=== PATIENT | female | born 1955 | race Caucasian/White ===

== ENCOUNTER 2017-12-23 00:41 | Emergency (ER) | payer OTHER, SELFPAY ==
[2017-12-23 00:50] VITALS: BP 150/76; PULSE 64; RESP 18; TEMP 36.8; O2SAT 100; BMI 21.4
--- NOTE | 2017-12-23 00:58 | PC.NURSE ---
She was scratched by cat at [employer] where she works,seen yesterday at clinic and placed on augmentin.Report filled out there and mailed to appropriate department.Here because of incresing pain in her right wrist and arm.
--- NOTE | 2017-12-23 01:04 | DI.RAD.S_ITS ---
PROCEDURE: XR WRIST RT 2V INDICATIONS: cat scratch TECHNIQUE: 2 views of the wrist were acquired. COMPARISON: None. FINDINGS: Bones: No fractures or dislocations. No suspicious bony lesions. Soft tissues: No suspicious soft tissue calcifications. IMPRESSION: No focal osseous destruction to suggest advanced osteomyelitis although if there is persistent high clinical concern, contrast enhanced MRI could be performed to exclude early infection No radiopaque foreign body. Dictated by: Brando Santo M.D. on 12/23/2017 at 7:28 Approved by: Brando Santo M.D. on 12/23/2017 at 7:30
[2017-12-23] MEDS: CODEINE/APAP 30/300 PREPACK 1 BOTTLE MISC (01:39)
--- NOTE | 2018-01-03 10:52 | ED_ITS ---
HPI - Animal Bite General Chief Complaint: Animal Bite Stated Complaint: CAT SCRATCH Time Seen by Provider: 12/23/17 01:00 Source: patient and family Mode of arrival: ambulatory Limitations: no limitations History of Present Illness HPI narrative: 62-year-old female presents with her and a chief complaint of a cat scratch on her right wrist yesterday. She was seen and evaluated at an outside facility and put on Augmentin, of which she has taken 2 doses. She denies systemic symptoms such as fever nor chills, nausea or vomiting. She had redness on the volar aspect of her forearm that extended nearly to the elbow and a puncture wound on the volar part of her wrist as well as significant pain in her hand upon presentation to Urgent Care. She took the 2 doses of Augmentin as mentioned and has improvement of the erythema on the forearm and no change in her right hand Related Data Previous Rx's Medication Instructions Recorded acetaminophen-codeine 1 tab PO Q4-6H PRN #14 tab 12/23/17 [Tylenol-Codeine #3] Allergies Allergy/AdvReac Type Severity Reaction Status Date / Time No Known Drug Allergies Allergy Verified 12/23/17 01:01 Review of Systems Review of Systems All systems reviewed & are unremarkable except as noted in HPI and below Constitutional Denies chills, Denies fever(s), Denies lethargy and Denies weakness Eyes Denies change in vision, Denies eye discharge, Denies irritation and Denies loss of vision ENT Ears, Nose, Mouth, and Throat: Denies change in voice, Denies neck pain and Denies sore throat Cardiovascular Denies chest pain, Denies irregular heart rhythm, Denies lightheadedness, Denies palpitations, Denies dyspnea, Denies dyspnea on exertion and Denies orthopnea Respiratory Denies cough, Denies dyspnea, Denies dyspnea on exertion and Denies wheezing Gastrointestinal Gastrointestinal: Denies abdominal pain, Denies change in bowel habits, Denies diarrhea, Denies nausea and Denies vomiting Genitourinary Denies hematuria, Denies flank pain, Denies urinary incontinence and Denies urinary urgency Musculoskeletal Denies neck pain Integumentary/Breasts Denies pruritus, Reports erythema, Denies rash and Reports wounds Neurologic Denies confusion, Denies loss of vision and Denies weakness Psychiatric Denies anxiety, Denies confusion, Denies depression, Denies homicidal ideation and Denies suicidal ideation Endocrine Denies palpitations Hematologic/Lymphatic Denies easy bruising Allergic/Immunologic Denies wheezing [facility] Social History Smoking Status: Never smoker Exam Narrative Exam Narrative: Pleasant 62F in mild distress Initial Vital Signs Initial Vital Signs: Vital Signs Temperature 98.3 F 12/23/17 00:50 Pulse Rate 64 12/23/17 00:50 Respiratory Rate 18 12/23/17 00:50 Blood Pressure 150/76 H 12/23/17 00:50 Pulse Oximetry 100 12/23/17 00:50 Const General: cooperative, well developed and in distress Nutritional Appearance: well nourished Orientation: alert, awake, oriented x3 and not confused HENMT Head: normocephalic and atraumatic Ears: external ears normal and TM's normal bilaterally Nose: external nose normal and No nasal discharge Face and sinus: sinuses nontender, face symmetric, no sinus tenderness and No dry mucous membranes Mouth: oral mucosae normal and moist mucous membranes Teeth and gingiva: dentition normal Throat: tonsils normal and uvula midline Eyes General: appearance normal, both eyes and all related structures Eyelids: eyelids normal Conjunctivae: conjunctivae normal Sclera: sclerae normal Pupils: PERRL EOM: EOM intact bilaterally Resp Effort & Inspection: normal respiratory effort, able to speak in complete sentences, no respiratory distress and no use of accessory muscles Auscultation: clear to auscultation bilaterally, no rales, no rhonchi and no wheezes GI Inspection: non-distended Palpation: soft, no hepatosplenomegaly, No guarding, No pulsatile mass and No tender Auscultation: normal bowel sounds Back/Spine/Pelvis Back: No CVA tenderness Cervical Spine: cervical ROM normal and No pain with cervical ROM Thoracic/Lumbar Spine: thoracic and lumbar spine normal to inspection Skin General: erythema Neuro General: alert, oriented x3, gait normal and no focal motor deficits Speech: speech normal Extrem Right upper extremity: wrist (Small puncture wound volar aspect of right wrist with surrounding erythema midway up the forearm. No induration or fluctuance noted) and hand (Normal sensation and cap refill with very minimal swelling to fingers. No pain with palpation to palm or dorsal surface of hand. No pain with passive flexion of any of the fingers. Very minimal swelling, as mentioned. None of kidney volts signs of flexor tenosynovitis are present) Course Orders Ordered: ED Orders 12/23/17 01:04 XR wrist RT 2V Stat Discontinued Medications Acetaminophen/Codeine Phosphate (Tylenol #3 Prepack) 1 bottle MISC SEEINSTR ONE Stop: 12/23/17 01:33 Last Admin: 12/23/17 01:39 Dose: 1 bottle Vital Signs - 8 hr 12/23/17 00:50 Temperature 98.3 F Pulse Rate 64 Respiratory Rate 18 Blood Pressure 150/76 H Pulse Oximetry 100 MDM - Animal Bite Differential Diagnosis Differential diagnosis: Likely bite by animal, cat bite and dog bite Medical Records Attestation: I reviewed the patient's medical records. Lab Data Attestation: I reviewed the patient's lab results. MDM Narrative Medical decision making narrative: Lengthy discussion with patient and at the bedside. She has had 2 doses of antibiotics and states that she is improving just not quickly, certainly not worsening. The redness on her forearm as improved. She denies systemic findings. I asked her to return later in the day to re-evaluate and gave significant instructions regarding signs/ symptoms which would prompt a return. Discharge Plan Departure Patient Disposition: Home Clinical Impression: Cat scratch, Cellulitis of forearm Discharge Date/Time: 12/23/17 01:30 Interventions: ED Discharge Assessment Last Done: 12/23/17 01:44 Instructions: DI for Cellulitis -- Adult Activity Restrictions/Additional Instructions: *You have been diagnosed with [ right forearm cat scratch and cellulitis ] *What to do: * continue to take medications as directed *Follow up with me at the emergency department tomorrow after 6:00 p.m. let registration know that I asked you to come back so I could take a look and that you do not necessarily need to register as a patient, but just call me back in the department and I will, to take a look * please return immediately for fever over 101 F, shaking chills, sweating , or worsening symptoms of year arm such as significant hand pain, swelling, pain with straightening your fingers or other symptoms we spoke of Prescriptions: New acetaminophen-codeine [Tylenol-Codeine #3] 300-30 mg tablet 1 tab PO Q4-6H PRN (Reason: pain) Qty: 14 RF: 0 Referrals: Angelica Padilla MD [Primary Care Provider] -
== END 2017-12-23 01:30 | disposition home or self-care (01) ==
PROVIDERS: Emergency Provider Emergency Medicine; Family Provider Family Medicine; PCP Family Medicine
DX: S60.811A Abrasion of right wrist, initial encounter (principal); L03.113 Cellulitis of right upper limb; W55.09XA Other contact with cat, initial encounter
CPT/HCPCS: 73100; 99281; 99282; 99283

== ENCOUNTER 2017-12-23 17:03 | Emergency (ER) | payer OTHER, SELFPAY ==
[2017-12-23 17:07] VITALS: BP 174/79; PULSE 62; RESP 18; TEMP 36.6; O2SAT 100; BMI 20.7
--- NOTE | 2017-12-23 18:38 | PC.NURSE ---
upset at / inquired about wait. Informed that we would see his as soon as possible but had to go in order of triage. / pt decided to leave.
== END 2017-12-23 18:39 | disposition left against medical advice (07) ==
LOC: ED 17:07
PROVIDERS: Family Provider Family Medicine; PCP Family Medicine
DX: M79.601 Pain in right arm (principal)
CPT/HCPCS: 99281

== ENCOUNTER 2017-12-23 19:53 | Inpatient (IN) | payer OTHER, SELFPAY ==
[2017-12-23 19:57] VITALS: BP 148/72; PULSE 68; RESP 16; TEMP 36.8; O2SAT 98; BMI 20.7
--- NOTE | 2017-12-23 21:01 | ED.SKABFB ---
HPI - Skin/Abscess/Foreign Bdy General Chief complaint: Skin/Abscess/Foreign Body Stated complaint: WAS TOLD TO COME BACK BY RT HAND Time Seen by Provider: 12/23/17 20:40 Source: patient and family Mode of arrival: ambulatory Limitations: no limitations History of Present Illness HPI narrative: Pleasant 62-year-old female returns with complaint of worsening symptoms in her right upper extremity after a cat scratch a few days ago. She had initially to been scratched on Tuesday and presented to the walk-in clinic on was prescribed Augmentin. I saw her in the department yesterday and after 2 doses of the antibiotic she had some improvement of the erythema on the volar surface of her right forearm but minimal change in the pain in her hand. The most notable punctures on the volar surface overlying the carpal bones. Yesterday she was able to tolerate passively extended fingers and had no pain on the palmar aspect of her hand. Today she has exquisite pain with extension of the fingers and palpation and the palm of her hand. She continues to deny any systemic findings such as fever, chills nor nausea or vomiting. She has been taking her medications as previously prescribed. She states the Tylenol with codeine prescribed did little to nothing regarding the control of her pain Onset (ago): day(s) Tetanus up to date: yes Location: R hand Severity: severe Quality: stabbing and aching Pain Consistency: constant Relieving factors: rest Exacerbating factors: palpation and movement Associated symptoms: denies other symptoms Treatments prior to arrival: antibiotic and prescription analgesic Related Data Home Medications Medication Instructions Recorded Confirmed acetaminophen-codeine 2 tab PO Q4-6H PRN 12/23/17 12/23/17 [Tylenol-Codeine #3] citalopram 12/23/17 gabapentin 12/23/17 Allergies Allergy/AdvReac Type Severity Reaction Status Date / Time No Known Drug Allergies Allergy Verified 12/23/17 17:11 Review of Systems Review of Systems All systems reviewed & are unremarkable except as noted in HPI and below Constitutional Denies chills, Denies fever(s), Denies lethargy and Denies weakness Eyes Denies change in vision, Denies eye discharge, Denies irritation and Denies loss of vision ENT Ears, Nose, Mouth, and Throat: Denies change in voice, Denies neck pain and Denies sore throat Cardiovascular Denies chest pain, Denies irregular heart rhythm, Denies lightheadedness, Denies palpitations, Denies dyspnea, Denies dyspnea on exertion and Denies orthopnea Respiratory Denies cough, Denies dyspnea, Denies dyspnea on exertion and Denies wheezing Gastrointestinal Gastrointestinal: Denies abdominal pain, Denies change in bowel habits, Denies diarrhea, Denies nausea and Denies vomiting Genitourinary Denies hematuria, Denies flank pain, Denies urinary incontinence and Denies urinary urgency Musculoskeletal Reports joint swelling, Reports limited range of motion and Denies neck pain Integumentary/Breasts Denies pruritus, Reports erythema, Denies rash and Denies wounds Neurologic Denies confusion, Denies loss of vision and Denies weakness Psychiatric Denies anxiety, Denies confusion, Denies depression, Denies homicidal ideation and Denies suicidal ideation Endocrine Denies palpitations Hematologic/Lymphatic Denies easy bruising Allergic/Immunologic Denies wheezing [facility] Social History household members: spouse Smoking Status: Never smoker alcohol intake: current Exam Narrative Exam Narrative: GENERAL: This is a well-nourished, well-developed patient, in mild distress. HEAD: Atraumatic. Normocephalic. No temporal or scalp tenderness. EYES: Pupils equal round and reactive. Extraocular motions intact. No scleral icterus. No injection or drainage. ENT: Nose without bleeding, purulent drainage or septal hematoma. Throat without erythema, tonsillar hypertrophy or exudate. Uvula midline. Airway patent. NECK: Trachea midline. No JVD or lymphadenopathy. Supple, nontender, no meningeal signs. CARDIOVASCULAR: Regular rate and rhythm without murmurs, gallops, or rubs. RESPIRATORY: Clear to auscultation. Breath sounds equal bilaterally. No wheezes, rales, or rhonchi. GASTROINTESTINAL: Abdomen soft, non-tender, nondistended. No hepato-splenomegaly, or palpable masses. No guarding. EXTREMITIES: Patient has developed significant pain to palpation of her palmar surface and has a some swelling which was not appreciated yesterday. It is not red, hot nor fluctuant. Patient has developed some mild swelling in all fingers which are held in flexion and now have pain with passive extension. She does have findings concerning for early abscess and possible early flexor tenosynovitis. BACK: Nontender without deformity or crepitance. No flank tenderness. NEURO: AOx3. SKIN: No rash or erythema. Initial Vital Signs Initial Vital Signs: Vital Signs Temperature 98.2 F 12/23/17 19:57 Pulse Rate 68 12/23/17 19:57 Respiratory Rate 16 12/23/17 19:57 Blood Pressure 148/72 H 12/23/17 19:57 Pulse Oximetry 98 12/23/17 19:57 Course Decision to Admit Date: 12/23/17 Decision to Admit time: 21:44 Orders Ordered: ED Orders 12/23/17 21:45 C-Reactive Protein Quant Stat Complete Blood Count AUTO DIFF Stat Erythrocyte Sedimentation Rate Stat Acetaminophen (Tylenol) 650 mg PO Q6H PRN PRN Reason: As Needed for Fever/Mild Pain Hydromorphone HCl (Dilaudid) 0.5 mg IV Q4H PRN PRN Reason: Pain, Moderate (4-6) Last Admin: 12/24/17 00:31 Dose: 0.5 mg Sodium Chloride (Normal Saline 0.9%) 1,000 mls @ 125 mls/hr IV CONT GENE Last Admin: 12/24/17 00:32 Dose: 125 mls/hr Ampicillin Sodium/Sulbactam (Sodium 3 gm/ Sodium Chloride) 100 mls @ 100 mls/hr IV Q6HR GENE Last Admin: 12/24/17 06:13 Dose: 100 mls/hr Infusion: 12/24/17 03:10 Dose: 100 mls/hr Admin: 12/24/17 00:32 Dose: 100 mls/hr Ondansetron HCl (Zofran) 4 mg IV Q4H PRN PRN Reason: Nausea And Vomiting Last Admin: 12/24/17 04:24 Dose: 4 mg Admin: 12/24/17 00:37 Dose: 4 mg Discontinued Medications Sodium Chloride (Normal Saline 0.9%) 1,000 mls @ 1,000 mls/hr IV BOLUS ONE Stop: 12/23/17 21:41 Ampicillin Sodium/Sulbactam (Sodium 3 gm/ Sodium Chloride) 100 mls @ 100 mls/hr IV NOW ONE Stop: 12/23/17 21:52 Ketorolac Tromethamine (Toradol) 30 mg IV NOW ONE Stop: 12/24/17 03:24 Last Admin: 12/24/17 04:06 Dose: 30 mg Oxycodone HCl (Percolone) 10 mg PO NOW ONE Stop: 12/24/17 03:22 Last Admin: 12/24/17 04:06 Dose: 10 mg Consultations Consultation #1: Call to Dr. Casiano of Orthopedics regarding significant concern for deep space infection which may well require surgical intervention. He is happy to accept this patient onto his service Vital Signs - 8 hr 12/23/17 22:47 12/24/17 00:17 12/24/17 06:10 Temperature 97.8 F 98.6 F Pulse Rate 62 68 71 Respiratory Rate 15 18 16 Blood Pressure 151/79 H 157/83 H 124/72 Pulse Oximetry 99 98 99 MDM - Skin/Abscess/Foreign Bdy Lab Data Result diagrams: 12/23/17 21:45 Lab Results 12/23/17 12/23/17 Range/Units 21:45 21:45 WBC 9.0 (4.5-11.0) X10^3/uL RBC 4.47 (4.0-5.2) X10^6/uL Hgb 13.9 (12.0-16.0) g/dL Hct 40.2 (36-46) % MCV 90.1 (80-100) fL MCH 31.1 (26-34) PG MCHC 34.5 (30-36) % RDW 12.3 (11.6-14.8) % Plt Count 254 (150-400) X10^3/uL Neut % (Auto) 81.6 H (50-75) % Lymph % (Auto) 11.3 L (25-40) % [place] % (Auto) 5.5 (3-14) % Eos % (Auto) 1.0 L (2-4) % Baso % (Auto) 0.6 (0-2) % Neut # (Auto) 7300 H (1414-5816) /uL ESR 16 (0-20) MM/HR C-Reactive Protein 3.4 H (<1.0) mg/dL Discharge Plan Departure Patient Disposition: Admitted As Inpatient Clinical Impression: Abscess of hand, right Discharge Date/Time: 12/23/17 22:30 Interventions: ED Discharge Assessment Last Done: 12/23/17 22:47 Admit Date/Time: 12/23/17 22:18 Admit Provider: Arpan Casiano
--- NOTE | 2017-12-23 21:26 | ED_ITS ---
HPI - Skin/Abscess/Foreign Bdy General Chief complaint: Skin/Abscess/Foreign Body Stated complaint: WAS TOLD TO COME BACK BY RT HAND Time Seen by Provider: 12/23/17 20:40 Source: patient and family Mode of arrival: ambulatory Limitations: no limitations History of Present Illness HPI narrative: Pleasant 62-year-old female returns with complaint of worsening symptoms in her right upper extremity after a cat scratch a few days ago. She had initially to been scratched on Tuesday and presented to the walk-in clinic on was prescribed Augmentin. I saw her in the department yesterday and after 2 doses of the antibiotic she had some improvement of the erythema on the volar surface of her right forearm but minimal change in the pain in her hand. The most notable punctures on the volar surface overlying the carpal bones. Yesterday she was able to tolerate passively extended fingers and had no pain on the palmar aspect of her hand. Today she has exquisite pain with extension of the fingers and palpation and the palm of her hand. She continues to deny any systemic findings such as fever, chills nor nausea or vomiting. She has been taking her medications as previously prescribed. She states the Tylenol with codeine prescribed did little to nothing regarding the control of her pain Onset (ago): day(s) Tetanus up to date: yes Location: R hand Severity: severe Quality: stabbing and aching Pain Consistency: constant Relieving factors: rest Exacerbating factors: palpation and movement Associated symptoms: denies other symptoms Treatments prior to arrival: antibiotic and prescription analgesic Related Data Home Medications Medication Instructions Recorded Confirmed acetaminophen-codeine 2 tab PO Q4-6H PRN 12/23/17 12/23/17 [Tylenol-Codeine #3] citalopram 12/23/17 gabapentin 12/23/17 Allergies Allergy/AdvReac Type Severity Reaction Status Date / Time No Known Drug Allergies Allergy Verified 12/23/17 17:11 Review of Systems Review of Systems All systems reviewed & are unremarkable except as noted in HPI and below Constitutional Denies chills, Denies fever(s), Denies lethargy and Denies weakness Eyes Denies change in vision, Denies eye discharge, Denies irritation and Denies loss of vision ENT Ears, Nose, Mouth, and Throat: Denies change in voice, Denies neck pain and Denies sore throat Cardiovascular Denies chest pain, Denies irregular heart rhythm, Denies lightheadedness, Denies palpitations, Denies dyspnea, Denies dyspnea on exertion and Denies orthopnea Respiratory Denies cough, Denies dyspnea, Denies dyspnea on exertion and Denies wheezing Gastrointestinal Gastrointestinal: Denies abdominal pain, Denies change in bowel habits, Denies diarrhea, Denies nausea and Denies vomiting Genitourinary Denies hematuria, Denies flank pain, Denies urinary incontinence and Denies urinary urgency Musculoskeletal Reports joint swelling, Reports limited range of motion and Denies neck pain Integumentary/Breasts Denies pruritus, Reports erythema, Denies rash and Denies wounds Neurologic Denies confusion, Denies loss of vision and Denies weakness Psychiatric Denies anxiety, Denies confusion, Denies depression, Denies homicidal ideation and Denies suicidal ideation Endocrine Denies palpitations Hematologic/Lymphatic Denies easy bruising Allergic/Immunologic Denies wheezing [facility] Social History household members: spouse Smoking Status: Never smoker alcohol intake: current Exam Narrative Exam Narrative: GENERAL: This is a well-nourished, well-developed patient, in mild distress. HEAD: Atraumatic. Normocephalic. No temporal or scalp tenderness. EYES: Pupils equal round and reactive. Extraocular motions intact. No scleral icterus. No injection or drainage. ENT: Nose without bleeding, purulent drainage or septal hematoma. Throat without erythema, tonsillar hypertrophy or exudate. Uvula midline. Airway patent. NECK: Trachea midline. No JVD or lymphadenopathy. Supple, nontender, no meningeal signs. CARDIOVASCULAR: Regular rate and rhythm without murmurs, gallops, or rubs. RESPIRATORY: Clear to auscultation. Breath sounds equal bilaterally. No wheezes , rales, or rhonchi. GASTROINTESTINAL: Abdomen soft, non-tender, nondistended. No hepato-splenomegaly , or palpable masses. No guarding. EXTREMITIES: Patient has developed significant pain to palpation of her palmar surface and has a some swelling which was not appreciated yesterday. It is not red, hot nor fluctuant. Patient has developed some mild swelling in all fingers which are held in flexion and now have pain with passive extension. She does have findings concerning for early abscess and possible early flexor tenosynovitis. BACK: Nontender without deformity or crepitance. No flank tenderness. NEURO: AOx3. SKIN: No rash or erythema. Initial Vital Signs Initial Vital Signs: Vital Signs Temperature 98.2 F 12/23/17 19:57 Pulse Rate 68 12/23/17 19:57 Respiratory Rate 16 12/23/17 19:57 Blood Pressure 148/72 H 12/23/17 19:57 Pulse Oximetry 98 12/23/17 19:57 Course Decision to Admit Date: 12/23/17 Decision to Admit time: 21:44 Orders Ordered: ED Orders 12/23/17 21:45 C-Reactive Protein Quant Stat Complete Blood Count AUTO DIFF Stat Erythrocyte Sedimentation Rate Stat Acetaminophen (Tylenol) 650 mg PO Q6H PRN PRN Reason: As Needed for Fever/Mild Pain Hydromorphone HCl (Dilaudid) 0.5 mg IV Q4H PRN PRN Reason: Pain, Moderate (4-6) Last Admin: 12/24/17 00:31 Dose: 0.5 mg Sodium Chloride (Normal Saline 0.9%) 1,000 mls @ 125 mls/hr IV CONT GENE Last Admin: 12/24/17 00:32 Dose: 125 mls/hr Ampicillin Sodium/Sulbactam (Sodium 3 gm/ Sodium Chloride) 100 mls @ 100 mls/ hr IV Q6HR GENE Last Admin: 12/24/17 06:13 Dose: 100 mls/hr Infusion: 12/24/17 03:10 Dose: 100 mls/hr Admin: 12/24/17 00:32 Dose: 100 mls/hr Ondansetron HCl (Zofran) 4 mg IV Q4H PRN PRN Reason: Nausea And Vomiting Last Admin: 12/24/17 04:24 Dose: 4 mg Admin: 12/24/17 00:37 Dose: 4 mg Discontinued Medications Sodium Chloride (Normal Saline 0.9%) 1,000 mls @ 1,000 mls/hr IV BOLUS ONE Stop: 12/23/17 21:41 Ampicillin Sodium/Sulbactam (Sodium 3 gm/ Sodium Chloride) 100 mls @ 100 mls/ hr IV NOW ONE Stop: 12/23/17 21:52 Ketorolac Tromethamine (Toradol) 30 mg IV NOW ONE Stop: 12/24/17 03:24 Last Admin: 12/24/17 04:06 Dose: 30 mg Oxycodone HCl (Percolone) 10 mg PO NOW ONE Stop: 12/24/17 03:22 Last Admin: 12/24/17 04:06 Dose: 10 mg Consultations Consultation #1: Call to Dr. Casiano of Orthopedics regarding significant concern for deep space infection which may well require surgical intervention. He is happy to accept this patient onto his service Vital Signs - 8 hr 12/23/17 22:47 12/24/17 00:17 12/24/17 06:10 Temperature 97.8 F 98.6 F Pulse Rate 62 68 71 Respiratory Rate 15 18 16 Blood Pressure 151/79 H 157/83 H 124/72 Pulse Oximetry 99 98 99 MDM - Skin/Abscess/Foreign Bdy Lab Data Result diagrams: 12/23/17 21:45 Lab Results 12/23/17 12/23/17 Range/Units 21:45 21:45 WBC 9.0 (4.5-11.0) X10^3/uL RBC 4.47 (4.0-5.2) X10^6/uL Hgb 13.9 (12.0-16.0) g/dL Hct 40.2 (36-46) % MCV 90.1 (80-100) fL MCH 31.1 (26-34) PG MCHC 34.5 (30-36) % RDW 12.3 (11.6-14.8) % Plt Count 254 (150-400) X10^3/uL Neut % (Auto) 81.6 H (50-75) % Lymph % (Auto) 11.3 L (25-40) % [place] % (Auto) 5.5 (3-14) % Eos % (Auto) 1.0 L (2-4) % Baso % (Auto) 0.6 (0-2) % Neut # (Auto) 7300 H (4144-7861) /uL ESR 16 (0-20) MM/HR C-Reactive Protein 3.4 H (<1.0) mg/dL Discharge Plan Departure Patient Disposition: Admitted As Inpatient Clinical Impression: Abscess of hand, right Discharge Date/Time: 12/23/17 22:30 Interventions: ED Discharge Assessment Last Done: 12/23/17 22:47 Admit Date/Time: 12/23/17 22:18 Admit Provider: Arpan Casiano
[2017-12-23 22:01] LABS: Add Manual Diff / Slide Review NO; Basophils Percent Auto 0.6 % (0-2); Hematocrit 40.2 % (36-46); Hemoglobin 13.9 g/dL (12.0-16.0); Lymphocytes Percent Auto 11.3 % (25-40); Mean Corpuscular HGB Conc 34.5 % (30-36); Mean Corpuscular Hemoglobin 31.1 PG (26-34); Mean Corpuscular Volume 90.1 fL (80-100); Monocytes Percent Auto 5.5 % (3-14); Neutrophils Absolute Auto 7300 /uL (3000-5900); Neutrophils Percent Auto 81.6 % (50-75); Platelet Count 254 X10^3/uL (150-400); Red Blood Cell Count 4.47 X10^6/uL (4.0-5.2); Red Cell Distribution Width 12.3 % (11.6-14.8)
[2017-12-23 22:23] LABS: Erythrocyte Sedimentation Rate 16 MM/HR (0-20)
[2017-12-23 22:32] LABS: C-Reactive Protein Quant 3.4 mg/dL (<1.0)
[2017-12-23 22:43] VITALS: BMI 21.9
[2017-12-23 22:47] VITALS: BP 151/79; PULSE 62; RESP 15; O2SAT 99
[2017-12-24 00:17] VITALS: BP 157/83; PULSE 68; RESP 18; TEMP 36.6; O2SAT 98
[2017-12-24] MEDS: HYDROMORPHONE 2 MG INJ 0.5 MG IV (00:31)
[2017-12-24] MEDS: SODIUM CHLORIDE 0.9% 1,000 ML 125 ML IV ×3 (00:32→19:49)
[2017-12-24] MEDS: AMPICILLIN/SULBACTAM 3 GM 3 GM in SODIUM CHLORIDE 0.9% 100 ML IV ×4 (00:32→17:44)
[2017-12-24] MEDS: ONDANSETRON 4 MG/2 ML INJ IV ×2 (00:37→04:24)
--- NOTE | 2017-12-24 00:43 | PC.NURSE ---
Addendum entered by Joe Pickard R.N. 12/24/17 04:14: 0320: Dr. Casiano notified by phone of pt continuing to have pain. New orders given: Toradol 30mg IV X1 and Oxycodone 10mg po X1. Original Note: Gel[employer]er Note: 0030: Awake, alert, oriented X3. Vital signs stable. IV in lt forearm patent. NS at 125cc/hr started at this time. Unasyn infusing. Pt having 6/10 pain in rt hand/arm. Medicated with Dilaudid 0.5mg IV. Pt having nausea after Dilaudid given; Zofran 4mg given IV for nausea. was at bedside, now going home.
[2017-12-24] MEDS: OXYCODONE IR 5 MG TABLET 10 MG PO (04:06)
[2017-12-24] MEDS: KETOROLAC 30 MG/ML VIAL IV (04:06)
[2017-12-24 06:10] VITALS: BP 124/72; PULSE 71; RESP 16; TEMP 37; O2SAT 99
[2017-12-24 07:55] VITALS: BP 139/77; PULSE 68; RESP 16; TEMP 36.7; O2SAT 99
--- NOTE | 2017-12-24 10:28 | PC.NURSE ---
Pt alert and oriented, right hand elevated. scratches and puncture wounds scabbed over. IVF's running as ordered. in and attentive at bedside. Plan for surgery to wash out site around 11:00 today.
--- NOTE | 2017-12-24 11:42 | PC.NURSE ---
Pt independent in room, updated on Or schedule. Pt continues with slight nausea.
[2017-12-24 11:45] VITALS: BP 155/78; PULSE 68; RESP 16; TEMP 36.6; O2SAT 100
--- NOTE | 2017-12-24 11:58 | PM.PN.1 ---
Subjective Date Patient Seen: 12/24/17 Interval history: Patient seen bedside for infected left hand sustained after a cat scratch that failed outpatient treatment. Her pain is beginning to improve, but she still has a lot of swelling and fluctuance in her palmar region. Exam Vital Signs (past 8 hours): - 12/24/17 06:10 12/24/17 07:55 Temperature 98.6 F 98.0 F Pulse Rate 71 68 Respiratory Rate 16 16 Blood Pressure 124/72 139/77 Pulse Oximetry 99 99 Oxygen Delivery Method Room Air Narrative Exam Narrative: WDWN NAD A&Ox3. Palmar region of right hand is fluctuant and TTP. ROM of wrist and fingers intact but limited to pain. Objective Labs Result Diagrams: 12/23/17 21:45 Labs: Laboratory Results - last 24 hr 12/23/17 12/23/17 21:45 21:45 WBC 9.0 RBC 4.47 Hgb 13.9 Hct 40.2 MCV 90.1 MCH 31.1 MCHC 34.5 RDW 12.3 Plt Count 254 Neut % (Auto) 81.6 H Lymph % (Auto) 11.3 L [place] % (Auto) 5.5 Eos % (Auto) 1.0 L Baso % (Auto) 0.6 Neut # (Auto) 7300 H ESR 16 C-Reactive Protein 3.4 H Assessment & Plan Plan: Assessment/Plan Narrative: 1. TO OR today with Dr. Casiano for I&D 2. Continue pain meds and NPO status Quality VTE Deep Vein Thrombosis/Pulmonary Embolism Present on Admission: No
--- NOTE | 2017-12-24 12:01 | P.PN_ITS ---
Subjective Date Patient Seen: 12/24/17 Interval history: Patient seen bedside for infected left hand sustained after a cat scratch that failed outpatient treatment. Her pain is beginning to improve , but she still has a lot of swelling and fluctuance in her palmar region. Exam Vital Signs (past 8 hours): - 12/24/17 06:10 12/24/17 07:55 Temperature 98.6 F 98.0 F Pulse Rate 71 68 Respiratory Rate 16 16 Blood Pressure 124/72 139/77 Pulse Oximetry 99 99 Oxygen Delivery Method Room Air Narrative Exam Narrative: WDWN NAD A&Ox3. Palmar region of right hand is fluctuant and TTP. ROM of wrist and fingers intact but limited to pain. Objective Labs Result Diagrams: 12/23/17 21:45 Labs: Laboratory Results - last 24 hr 12/23/17 12/23/17 21:45 21:45 WBC 9.0 RBC 4.47 Hgb 13.9 Hct 40.2 MCV 90.1 MCH 31.1 MCHC 34.5 RDW 12.3 Plt Count 254 Neut % (Auto) 81.6 H Lymph % (Auto) 11.3 L [place] % (Auto) 5.5 Eos % (Auto) 1.0 L Baso % (Auto) 0.6 Neut # (Auto) 7300 H ESR 16 C-Reactive Protein 3.4 H Assessment & Plan Plan: Assessment/Plan Narrative: 1. TO OR today with Dr. Casiano for I&D 2. Continue pain meds and NPO status Quality VTE Deep Vein Thrombosis/Pulmonary Embolism Present on Admission: No
--- NOTE | 2017-12-24 14:33 | CM.IDA ---
Discharge Planning/Care Management CM Discharge Assessment Start: 12/24/17 14:27 Freq: Status: Active Protocol: Document 12/24/17 14:27 ROSA (Rec: 12/24/17 14:33 ROSA [id number]) Discharge Planning Assessment Assigned [employer] Line Supervisor CHRISTINA Neil DPOA/Assigned Designee Name Jean-Paul Charles, spouse Contact Information [phone] Advance Directives? No History Provided By Patient Medical Record Prior Living Arrangements House Household Members spouse Type of transporation used prior to Drives own vehicle admit Independent with ADL's Yes Is patient alert and oriented? Yes Barriers to Discharge No Comment Home w/spouse, hopefully po abx. Indp in rm. OR today for I+D Discharge Plan Home Transportation Arrangement Family Referrals Initiated None needed Review Status In Process
[2017-12-24 15:45] VITALS: BP 144/70; PULSE 73; RESP 16; TEMP 36.9; O2SAT 99
--- NOTE | 2017-12-24 16:31 | P.HP_ITS ---
History of Present Illness Date Patient Seen: 12/24/17 Time Patient Seen: 14:00 Chief complaint: WAS TOLD TO COME BACK BY RT HAND Narrative: The patient is a 62-year-old woman who was admitted through the emergency room last night with a possible deep space infection in her right hand. She had a scratch from her cat on Tuesday of this week. She was placed on oral antibiotics and followed back up in the emergency room yesterday. Because of worsening of her pain, redness and swelling she was admitted for IV antibiotics and possible surgical drainage. On seeing the patient today after approximately 18 hr of IV antibiotics she reports significant improvement. She feels some stiffness in her fingers but the pain in the palm and forearm is much better. She says she also feels much better overall than she did last night. Patient History Family & Social History Family History: Reviewed 12/24/17 by Arpan Casiano MD Social History: household members spouse Prior Living Arrangements House Safety & Behavioral: Feels Safe in Current Yes Environment Been Physically Hurt or No Threatened By a Person Suicidal Ideation Description None Tobacco & Substance use: Smoking Status Never smoker alcohol intake current alcohol intake frequency 0-2 drinks per day Substance Use Type does not use Meds Home Medications Medication Instructions Recorded Confirmed Type acetaminophen-codeine 2 tab PO Q4-6H PRN 12/23/17 12/23/17 History [Tylenol-Codeine #3] citalopram 12/23/17 History gabapentin 12/23/17 History Allergies Allergy/AdvReac Type Severity Reaction Status Date / Time No Known Drug Allergies Allergy Verified 12/23/17 17:11 Review of Systems Review of Systems All systems reviewed & are unremarkable except as noted in HPI and below Exam Vital Signs (past 8 hours): - 12/24/17 11:45 Temperature 97.8 F Pulse Rate 68 Respiratory Rate 16 Blood Pressure 155/78 H Pulse Oximetry 100 Oxygen Delivery Method Room Air Const General: cooperative and well developed Nutritional Appearance: average body habitus Orientation: alert, awake and oriented x3 Resp Effort & Inspection: normal respiratory effort Auscultation: clear to auscultation bilaterally Cardio Rate: regular rate Rhythm: regular rhythm Skin Other: There is is mild erythema over the volar aspect forearm and palm. There is a little bit of bruising around 2 puncture wounds that are at the wrist level on the volar side. The wounds are healing without obvious purulence or surrounding infection. The palm and thenar eminence are supple with no evidence of any significant tenderness or abscess. There is just mild swelling of the fingers. There is some stiffness and soreness with movement at the PIP joints. Neck there is no tenderness over the flexor tendons. No evidence of any abscess or erythema into the hand. The dorsum of the hand and forearm is completely unremarkable. Neuro Motor: muscle tone normal throughout Sensory Exam: no sensory deficits noted Other: Strength is grossly intact but quality rn is limited by pain on the right side. Extrem Other: There is no evidence of any abscess or induration in the hand whatsoever. No tenderness over the deep or palmar or thenar space. No tenderness along the flexor tendons. 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 There is some stiffness and pain of the PIP joints but no real swelling or erythema in the fingers. The dorsum of the hand and forearm are unremarkable. Objective Labs Result Diagrams: 12/23/17 21:45 Labs: Laboratory Results - last 24 hr 12/23/17 12/23/17 21:45 21:45 WBC 9.0 RBC 4.47 Hgb 13.9 Hct 40.2 MCV 90.1 MCH 31.1 MCHC 34.5 RDW 12.3 Plt Count 254 Neut % (Auto) 81.6 H Lymph % (Auto) 11.3 L Livingston % (Auto) 5.5 Eos % (Auto) 1.0 L Baso % (Auto) 0.6 Neut # (Auto) 7300 H ESR 16 C-Reactive Protein 3.4 H Assessment & Plan Plan: Assessment/Plan Narrative: Cellulitis right upper extremity. When the patient was admitted last night after failure to improve with oral antibiotics there is a strong suspicion that this may be a deep space infection. She has significantly improved with 18 hr of IV antibiotics. There is no real tenderness, fullness or induration within the palm today. She does have some discomfort with flexing her fingers but this appears to be more stiffness at the PIP joints. There is no tenderness or swelling in the flexor tendons. Most of the erythema and warmth has resolved. We will continue to monitor her with IV antibiotics. I expect with continued improvement she will be discharged to home tomorrow on oral antibiotics. Surgery is unlikely to be necessary at this point unless her condition deteriorates. Time Spent With Patient Time with patient: less than 15 minutes Quality VTE Deep Vein Thrombosis/Pulmonary Embolism Present on Admission: No
[2017-12-24] MEDS: ACETAMINOPHEN 325 MG TABLET 650 MG PO (19:49)
[2017-12-24 21:00] VITALS: BP 146/74; PULSE 67; RESP 16; TEMP 37.2; O2SAT 99
[2017-12-25] VITALS (7 sets, daily range): BP systolic 135–157; BP diastolic 63–80; PULSE 58–73; RESP 14–16; TEMP 35.9–36.9; O2SAT 96–100
[2017-12-25] MEDS: AMPICILLIN/SULBACTAM 3 GM 3 GM in SODIUM CHLORIDE 0.9% 100 ML IV ×3 (00:13→19:10)
--- NOTE | 2017-12-25 01:05 | PC.NURSE ---
Addendum entered by Yamileth Hernandez 12/25/17 06:41: Pt states pain is at 5/10, gave tylenol for pain per her request. Original Note: Addendum entered by Joe Pickard R.N. 12/25/17 05:59: Reviewed and agree with assessment and note by SN Seamus. Original Note: Bilingual Trainer Nurse (NS): A&O x's 3. Vital signs stable. IV in lt forearm. NS at 125 cc/hr, unasyn infusing . Pt reports pain as 3/10 in rt hand/fingers. Rt hand is elevated. Pt states soreness when flexing fingers but pain is minimal at rest.
[2017-12-25] MEDS: SODIUM CHLORIDE 0.9% 1,000 ML 125 ML IV (05:56)
[2017-12-25] MEDS: ACETAMINOPHEN 325 MG TABLET 650 MG PO ×2 (06:08→12:25)
--- NOTE | 2017-12-25 10:32 | PC.NURSE ---
Puncture sites on right wrist area are without drainage or surrounding redness. Remains tender. Right hand is swollen with fingers difficult to clench per pt. Pt near tears at times and seems unable to remember details perhaps due to high level of anxiety at hospitalization. Pt expressing wish to be discharged home today. Re pain, pt found it difficult to rate. Had tylenol earlier at 0600 and observed mostly sleeping so far this am.
--- NOTE | 2017-12-25 11:41 | PM.PNPO.1 ---
Subjective Date Patient Seen: 12/25/17 Time Patient Seen: 11:41 Interval history: The patient reports that the hand feels about the same as yesterday. She has not been able to tolerate the narcotics. She has also not been sleeping well and she has not been taking her normal gabapentin. Exam Vital Signs (past 8 hours): - 12/25/17 06:06 12/25/17 07:19 Temperature 98.0 F 98.4 F Pulse Rate 69 68 Respiratory Rate 14 16 Blood Pressure 157/80 H 142/76 H Pulse Oximetry 99 98 Oxygen Delivery Method Room Air Extrem Other: There is minimal erythema and warmth today. There is still a little bit of swelling and tenderness in the palm but no obvious abscess or fluctuance. No tenderness in the thenar area. The hand and fingers are generally swollen but there is no tenderness over the flexor tendons. Passive flexion is generally limited by some stiffness but not pain. There is still some pain with active flexion of her fingers. Objective Labs Result Diagrams: 12/23/17 21:45 Assessment & Plan Post-op Postoperative Postoperative plan narrative: The patient seems to be responding well to IV antibiotics. There is still some tenderness in the palm but I do not see any indications for surgical release at this time. I think there is still a good chance this will resolve with antibiotics. I did speak with the pharmacist who recommended switching her to doxycycline 100 mg b.i.d.. I would like to continue with IV over the next 24 hr. If the pain and tenderness do not completely resolve there is still some possibility that surgical drainage may be required. Time Spent With Patient less than 15 minutes Quality VTE Deep Vein Thrombosis/Pulmonary Embolism Present on Admission: No
[2017-12-25] MEDS: DOXYCYCLINE 100 MG in SODIUM CHLORIDE 0.9% 100 ML IV (12:05)
[2017-12-25] MEDS: CITALOPRAM 20 MG TABLET 40 MG PO (14:30)
[2017-12-25] MEDS: ONDANSETRON 4 MG/2 ML INJ IV (14:33)
[2017-12-25] MEDS: LORazepam 2 MG/ML SYRINGE 0.5 MG IV (15:50)
--- NOTE | 2017-12-25 19:03 | PC.NURSE ---
Evening Shift Note- called regaurding possible side effects for IV doxycyclibne antibiotic. patient has been complaining of nausea and vomting, headache, and no appitite since first dose of doxycycoline this afternoon. Recieved new orders to D/C doxycycline and restart Unasyn IV.
[2017-12-25] MEDS: GABAPENTIN 600 MG TABLET 1200 MG PO (20:38)
[2017-12-26] MEDS: AMPICILLIN/SULBACTAM 3 GM 3 GM in SODIUM CHLORIDE 0.9% 100 ML IV ×2 (01:01→06:40)
[2017-12-26] MEDS: SODIUM CHLORIDE 0.9% FLUSH 10 ML IV ×3 (01:01→09:00)
--- NOTE | 2017-12-26 01:17 | PC.NURSE ---
Addendum entered by Julissa Gutierrez R.N. 12/26/17 06:46: States she slept well. Complains of 4/10 headache this morning; medicated with Tylenol. Original Note: Patient is alert and oriented. Breath sounds diminished but CTA with RA sat of 99%. HRR. Denies nausea. BT present and abdomen is soft. Denies dysuria, frequency, urgency or incontinence. Is independent with mobility. Right hand is swollen but non-tender. Noted 3 scratch/abrasion/puncture sites (1 on anterior wrist, 1 on posterior wrist and 1 on posterior forearm. No redness or drainage noted. Radial pulse is present and able to move fingers but not make a fist. Fall risk score is moderate; no bed alarm at this time as patient is steady on feet.
[2017-12-26 05:41] VITALS: BP 131/78; PULSE 69; RESP 16; TEMP 37.1; O2SAT 99
[2017-12-26] MEDS: ACETAMINOPHEN 325 MG TABLET 650 MG PO (06:44)
[2017-12-26 07:52] VITALS: BP 128/57; PULSE 61; RESP 14; TEMP 36.7; O2SAT 99
[2017-12-26] MEDS: CITALOPRAM 20 MG TABLET 40 MG PO (08:59)
--- NOTE | 2017-12-26 09:28 | PC.NURSE ---
Addendum entered by Lori Hernandez R.N. 12/26/17 11:31: Tolerating PO ABX well so far, reviewewd all d/c information with Pt. IV removed. Original Note: Addendum entered by Lori Hernandez R.N. 12/26/17 10:06: 0950-Dr Casiano into see Pt. ROM has improved and pain is controlled with APAP and will add Ibuprofen. Since Pt didn't tolerate ABX yesterd ay, so we will trial PO ABX and d/c home when able, later today. Original Note: Am shift Pt is a/o x3, only complaint is IBARRA and mild pain to R hand, unable to make fist, but Per Pt ROM has improved. Denies numbness to affected arm. Denies nausea, and will monitor as shift progresses. Will request Ibuprofen, per Pt.
--- NOTE | 2017-12-26 10:38 | PM.DS.1 ---
History of Present Illness Chief complaint: WAS TOLD TO COME BACK BY RT HAND Narrative: The patient is a 62-year-old woman who was admitted through the emergency room last night with a possible deep space infection in her right hand. She had a scratch from her cat on Tuesday of this week. She was placed on oral antibiotics and followed back up in the emergency room yesterday. Because of worsening of her pain, redness and swelling she was admitted for IV antibiotics and possible surgical drainage. On seeing the patient today after approximately 18 hr of IV antibiotics she reports significant improvement. She feels some stiffness in her fingers but the pain in the palm and forearm is much better. She says she also feels much better overall than she did last night. Discharge Providers Date of admission: 12/23/17 22:18 Primary care physician: Angelica Padilla MD Discharge provider: Arpan Casiano MD Summary Discharge Diagnosis: Cellulitis from cat scratch right hand. Hospital Course: The patient was admitted to the hospital and initially placed on ampicillin. She responded nicely to the IV antibiotics and it was determined that no surgical intervention was necessary. I did switch her to doxycycline as recommended by the pharmacy has a better medication for cat scratch. However, she did not tolerate this medication was placed back on ampicillin. I will plan to discharge her on azithromycin after she has 1 dose here in the hospital. Status at Discharge Functional status at discharge: independent ambulation Overall status at discharge: patient is back to baseline Time Spent with Patient Less than 30 minutes Exam Vital Signs (past 8 hours): - 12/26/17 05:41 12/26/17 07:52 Temperature 98.8 F 98.1 F Pulse Rate 69 61 Respiratory Rate 16 14 Blood Pressure 131/78 128/57 L Pulse Oximetry 99 99 Oxygen Delivery Method Room Air Extrem Other: The right hand and wrist again looks improved. When I entered the room the patient was using her right hand to type on her phone with her index finger. She says there is still some pain with trying to actively flex her other fingers but this is definitely improved. There has been no real erythema and minimal warmth. The hand in all compartments are supple with no induration or evidence of abscess. Objective Labs Result Diagrams: 12/23/17 21:45 Discharge Plan Discharge Plan Patient Disposition: Home Discharge comment: Patient will be discharged to home with oral antibiotics. I will plan to see her back in 1 week. Provider Discharge Instructions Diet: Regular Activity: Progress hand and wrist range of motion as tolerated. Keep hand elevated. Cold/Heat Therapy: Ice as needed for pain Other treatments: Use ibuprofen, 100 mg, 3 times per day with food. Skin/Wound/Dressing Care Report to your healthcare provider any signs of infection, such as:: chills, fever, night sweats, increased pain and unusual drainage Discharge Data Primary Care Provider: Angelica Padilla Attending Provider: Arpan Casiano Admit Date/Time: 12/23/17 22:18 Discharge Interventions Interventions: Discharge assessment Last Done: 12/26/17 09:56 Quality VTE Deep Vein Thrombosis/Pulmonary Embolism Present on Admission: No
[2017-12-26] MEDS: AZITHROMYCIN 250 MG TABLET 500 MG PO (10:59)
--- NOTE | 2017-12-26 11:09 | CM.DPC ---
DCP/continued: Reviewed chart. Patient medically stable for d/c today. Patient switched to oral abx and has no identified d/c planning needs. P: Home today. CHRISTINA Emmanuel
[2017-12-26 11:49] VITALS: BP 154/84; PULSE 61; RESP 16; TEMP 36.6; O2SAT 98
== END 2017-12-26 11:53 | disposition home or self-care (01) | DRG 383 ==
LOC: ED 21:26 → AC 22:19
PROVIDERS: Admitting Provider Orthopaedic Surgery; Emergency Provider Emergency Medicine; Family Provider Family Medicine; PCP Family Medicine; Visit Provider Orthopaedic Surgery
DX: L03.113 Cellulitis of right upper limb (principal); W55.03XA Scratched by cat, initial encounter
CPT/HCPCS: 36591; 73100; 85025; 85651; 86140; 99281; 99283; J0295; J1170; J1885; J2060; J2405

== ENCOUNTER → 2019-12-21 13:08 | Outpatient (CLI) | payer SELFPAY ==
[2019-12-21 15:25] LABS: Free T4, Direct Thyroxine 0.91 ng/dL (0.78-2.19)
[2019-12-21 16:12] LABS: Folate 6.4 ng/mL (2.76-20.0); Vitamin B12 337 pg/mL (239-931)
[2019-12-25 18:36] LABS: Methylmalonic Acid,Serum 180 nmol/L (0-378)
== END ==
PROVIDERS: Family Provider Family Medicine; PCP Family Medicine; Referring Provider Family Medicine; Visit Provider Psychiatry & Neurology Neurology
DX: R41.3 Other amnesia (principal)
CPT/HCPCS: 36415; 82607; 82746; 83921; 84439; 84443

== ENCOUNTER → 2020-03-10 14:03 | Outpatient (CLI) | payer OTHER, SELFPAY ==
--- NOTE | 2020-03-10 | DI.MRI.S_ITS ---
PROCEDURE: MR HEAD/BRAIN WO CON INDICATIONS: Other amnesia TECHNIQUE: Noncontrast axial T1 spin echo, axial T2 fast spin echo, sagittal and axial FLAIR, coronal T2 fast spin echo, axial gradient echo, axial diffusion and ADC through the brain. COMPARISON: None. FINDINGS: Image quality: Excellent. CSF Spaces: Basal cisterns are patent. No extra-axial fluid collections. Ventricles are normal in size and shape. Brain: No intracranial masses or hemorrhage. Escobedo/white matter interface is normal. Brainstem appears normal. Diffusion-weighted images demonstrate no acute ischemic insult. No chronic ischemic insults. Normal intravascular flow voids are present. Skull and face: Calvarium has normal marrow signal. Orbits appear normal. Sinuses: Sinuses and mastoids are clear. IMPRESSION: Unremarkable brain MRI. Normal brain parenchyma for patient age. No evidence of acute stroke, hemorrhage, or mass. Dictated by: Emerson Nava M.D. on 03/10/2020 at 14:36 Approved by: Emerson Nava M.D. on 03/10/2020 at 14:39
== END ==
PROVIDERS: Family Provider Family Medicine; PCP Family Medicine; Referring Provider Psychiatry & Neurology Neurology; Visit Provider Psychiatry & Neurology Neurology
DX: R41.3 Other amnesia (principal)
CPT/HCPCS: 70551

== ENCOUNTER → 2020-04-22 14:55 | Outpatient (CLI) | payer OTHER, SELFPAY ==
[2020-04-22 17:05] LABS: TSH w/ Reflex to FT4 2.96 uIU/mL (0.47-4.68)
[2020-04-22 17:26] LABS: Vitamin B12 357 pg/mL (239-931)
[2020-04-23 08:09] LABS: RPR Screen Non Reactive (Non Reactive)
[2020-04-27 13:08] LABS: Methylmalonic Acid,Serum 67 nmol/L (0-378)
== END ==
PROVIDERS: Family Provider Family Medicine; PCP Family Medicine; Referring Provider Psychiatry & Neurology Neurology; Visit Provider Psychiatry & Neurology Neurology
DX: R41.89 Other symptoms and signs involving cognitive functions and awareness (principal)
CPT/HCPCS: 36415; 82607; 83921; 84443; 86592

== ENCOUNTER → 2020-09-23 14:08 | Outpatient (CLI) | payer OTHER, SELFPAY ==
[2020-09-23 15:52] LABS: Vitamin B12 500 pg/mL (239-931)
[2020-09-26 00:36] LABS: Methylmalonic Acid,Serum 153 nmol/L (0-378)
== END ==
PROVIDERS: Family Provider Family Medicine; PCP Family Medicine; Referring Provider Psychiatry & Neurology Neurology; Visit Provider Psychiatry & Neurology Neurology
DX: G31.84 Mild cognitive impairment of uncertain or unknown etiology (principal)
CPT/HCPCS: 36415; 82607; 83921

== ENCOUNTER → 2021-07-24 16:20 | Outpatient (CLI) | payer OTHER, SELFPAY ==
[2021-07-24 16:45] LABS: Add Manual Diff / Slide Review NO; Basophils Absolute Auto 0 /uL (0-100); Basophils Percent Auto 0.8 % (0-2); Eosinophils Absolute Auto 100 /uL (0-450); Eosinophils Percent Auto 2.5 % (2-4); Hematocrit 39.1 % (36-46); Hemoglobin 13.8 g/dL (12.0-16.0); Lymphocytes Absolute Auto 1000 /uL (1100-4500); Lymphocytes Percent Auto 21.2 % (25-40); Mean Corpuscular HGB Conc 35.1 % (30-36); Mean Corpuscular Hemoglobin 31.3 PG (26-34); Monocytes Absolute Auto 300 /uL (0-900); Neutrophils Absolute Auto 3300 /uL (1500-7000); Neutrophils Percent Auto 69.5 % (50-75); Platelet Count 264 X10^3/uL (150-400); White Blood Cell Count 4.8 X10^3/uL (4.5-11.0)
[2021-07-24 17:05] LABS: Alanine Aminotransferase 14 IU/L (<35); Albumin 4.9 g/dL (3.5-5.0); Albumin Globulin Ratio 1.8 (1.0-2.8); Alkaline Phosphatase 69 U/L (38-126); Aspartate Aminotransferase 27 IU/L (14-36); BUN Creatinine Ratio 8.8 (6-22); Bilirubin Total 0.8 mg/dL (0.2-1.3); Blood Urea Nitrogen 7 mg/dL (7-17); Calcium 9.4 mg/dL (8.4-10.2); Carbon Dioxide 29 mmol/L (22-32); Chloride 104 mmol/L (98-107); Cholesterol 210 mg/dL (140-199); Estimated Glomerular Filt Rate > 60.0 mL/min (>60); Globulin 2.8 g/dL (1.7-4.1); Glucose 106 mg/dL (80-110); HDL Cholesterol 43 mg/dL (40-60); HEMOLYSIS < 15 (0-50); LDL Cholesterol Calculated 127 mg/dL (<100); Potassium 4.1 mmol/L (3.4-5.1); Sodium 139 mmol/L (137-145); Total Protein 7.7 g/dL (6.3-8.2); Triglycerides 199 mg/dL (35-150)
[2021-07-24 17:53] LABS: Vitamin B12 448 pg/mL (239-931)
[2021-07-24 18:15] LABS: TSH w/ Reflex to FT4 1.75 uIU/mL (0.47-4.68)
== END ==
PROVIDERS: Family Provider Family Medicine; PCP Internal Medicine; Referring Provider Internal Medicine; Visit Provider Internal Medicine
DX: E53.8 Deficiency of other specified B group vitamins (principal); F02.80 Dementia in other diseases classified elsewhere, unspecified severity, without behavioral disturbance, psychotic disturbance, mood disturbance, and anxiety; F41.1 Generalized anxiety disorder; G30.0 Alzheimer's disease with early onset
CPT/HCPCS: 36415; 80053; 80061; 82607; 84443; 85025

== ENCOUNTER → 2021-07-30 09:21 | Outpatient (CLI) | payer OTHER, SELFPAY ==
[2021-07-30 10:45] LABS: Appearance Urine UA CLEAR; Bilirubin Urine UA NEGATIVE (NEGATIVE); Color Urine UA YELLOW; Glucose Urine UA NEGATIVE (Negative); Ketones Urine UA NEGATIVE (NEGATIVE); Leukocyte Esterase Urine UA 2+ (NEGATIVE); Nitrite Urine UA NEGATIVE (Negative); Occult Blood Urine UA TRACE-INTACT (Negative); Protein Urine UA NEGATIVE (Negative); Specific Gravity Urine UA <=1.005 (1.000-1.035); Urobilinogen Urine UA 0.2 E.U./dL (0.2)
[2021-07-30 11:04] LABS: Bacteria Urine Few (2-10); Culture Indicated Urine Specimen Cultured; RBC Urine 0-1/HPF (0-5/HPF); Squamous Epithelial Cell Urine 1-5 /HPF (0-5/HPF); WBC Urine 5-10/HPF (0-5/HPF)
== END ==
PROVIDERS: Family Provider Family Medicine; PCP Internal Medicine; Referring Provider Internal Medicine; Visit Provider Internal Medicine
DX: R11.2 Nausea with vomiting, unspecified (principal)
CPT/HCPCS: 81001; 87077; 87086; 87147

== ENCOUNTER 2021-08-09 17:09 | Emergency (ER) | payer OTHER, SELFPAY ==
[2021-08-09 17:16] VITALS: BP 127/76; PULSE 69; RESP 18; TEMP 36.6; O2SAT 100
[2021-08-09 17:49] LABS: Add Manual Diff / Slide Review NO; Basophils Absolute Auto 0 /uL (0-100); Basophils Percent Auto 0.5 % (0-2); Eosinophils Absolute Auto 0 /uL (0-450); Eosinophils Percent Auto 0.3 % (2-4); Hematocrit 41.8 % (36-46); Hemoglobin 14.6 g/dL (12.0-16.0); Lymphocytes Absolute Auto 500 /uL (1100-4500); Lymphocytes Percent Auto 7.3 % (25-40); Mean Corpuscular HGB Conc 35.1 % (30-36); Mean Corpuscular Hemoglobin 31.1 PG (26-34); Mean Corpuscular Volume 88.8 fL (80-100); Monocytes Absolute Auto 100 /uL (0-900); Monocytes Percent Auto 1.7 % (3-14); Neutrophils Absolute Auto 6800 /uL (1500-7000); Neutrophils Percent Auto 90.2 % (50-75); Platelet Count 274 X10^3/uL (150-400); White Blood Cell Count 7.5 X10^3/uL (4.5-11.0)
[2021-08-09 17:59] LABS: Alanine Aminotransferase 16 IU/L (<35); Albumin 5.1 g/dL (3.5-5.0); Albumin Globulin Ratio 1.7 (1.0-2.8); Alkaline Phosphatase 85 U/L (38-126); Aspartate Aminotransferase 26 IU/L (14-36); BUN Creatinine Ratio 9.4 (6-22); Bilirubin Total 1.2 mg/dL (0.2-1.3); Blood Urea Nitrogen 6 mg/dL (7-17); Calcium 9.6 mg/dL (8.4-10.2); Carbon Dioxide 24 mmol/L (22-32); Chloride 104 mmol/L (98-107); Estimated Glomerular Filt Rate > 60 mL/min (>60); Glucose 141 mg/dL (80-110); HEMOLYSIS < 15 (0-50); Lipase 138 U/L (23-300); Potassium 3.8 mmol/L (3.4-5.1); Sodium 140 mmol/L (137-145); Total Protein 8.1 g/dL (6.3-8.2)
--- NOTE | 2021-08-09 18:21 | ED_ITS ---
HPI - Nausea/Vomiting/Diarrhea General Chief complaint: Nausea/Vomiting/Diarrhea Stated complaint: Vomiting nausea Time Seen by Provider: 08/09/21 18:15 Source: patient and family Mode of arrival: Ambulatory History of Present Illness HPI Narrative: 66F nonsmoker with history of insomina, early onset alzheimer's type dementia and PTSD presents with the chief complaint of nausea and vomiting over the course of the day. She feels a bit fatigued and has the slightly decreased appetite. She denies any pain and has had no trouble moving her bowels. She denies any dietary change. That is hard for to tell if she has any urinary complaints such as dysuria, frequency or urgency but she had a UTI relatively recently and presented to her primary care provider under similar circumstances. Additionally she started in increased dose of her Rivastigmine yesterday at the request of her neurologist and also had a 24-48 hour episode of nausea vomiting and feeling a bit unwell last time there was an increase in dosing also. She denies exposure to ill persons. She has no other medication change. Related Data Home Medications Medication Instructions Recorded Confirmed gabapentin 1,200 mg PO QPM MDD 1200 12/23/17 07/24/21 multivitamin 2 tab PO QAM tab 07/03/19 07/24/21 memantine 10 mg tablet 10 mg PO BID tab 07/24/21 07/24/21 rivastigmine tartrate 1.5 mg 1.5 mg PO BID cap 07/24/21 07/24/21 capsule Previous Rx's Medication Instructions Recorded citalopram 20 mg tablet 20 mg PO DAILY #30 tab 04/08/20 mecobalamin (vitamin B12) 1,000 1,000 mcg PO DAILY #90 tab 07/24/21 mcg chewable tablet cephalexin 500 mg capsule 500 mg PO BID #10 cap 08/09/21 ondansetron 4 mg disintegrating 4 mg PO TID-QID PRN #10 tab 08/09/21 tablet Allergies Allergy/AdvReac Type Severity Reaction Status Date / Time No Known Drug Allergies Allergy Verified 07/24/21 10:35 Review of Systems Review of Systems Narrative: GENERAL: See HPI HEENT: Denies sinus pain, ear pain, sore throat, difficulty swallowing, dizziness. RESPIRATORY: Denies dyspnea, cough, wheezing, hemoptysis, sputum. CARDIOVASCULAR: Denies chest pain, palpitations, orthopnea, edema, GASTROINTESTINAL: See HPI : Denies dysuria, frequency, incontinence, hematuria, urinary retention. MUSCULOSKELETAL: denies weakness, joint pain, or bony pain SKIN: Denies rash, skin lesions, or other NEUROLOGIC: Denies weakness, headache, numbness, change in speech, confusion, seizures, incoordination. PSYCHIATRIC: No concerning psychosocial issues. 12 point review of systems is negative except for those stated above Patient History Medical History Chronic insomnia Dementia in Alzheimer's disease with early onset Right rotator cuff tendonitis Vitamin B12 deficiency Social History marital status: details: (Jeong) works from home. Two grown children. household members: spouse Smoking Status: Never smoker alcohol intake: current Smoking Status: Never smoker alcohol intake frequency: 0-2 drinks per day Substance Use Type: does not use Exam Narrative Exam Narrative: GENERAL: [66] year old patient appears stated age. Well-developed patient, in mild distress. HEAD: Atraumatic. Normocephalic. EYES: Pupils equal round and reactive. Extraocular motions intact. No scleral icterus. No injection or drainage. ENT: Dry mucous membranes. Nose without bleeding, purulent drainage. Throat without erythema, tonsillar hypertrophy or exudate. Airway patent. NECK: Trachea midline. Non tender CARDIOVASCULAR: Regular rate and rhythm without murmurs, gallops, or rubs. RESPIRATORY: Clear to auscultation. Breath sounds equal bilaterally. No wheezes, rales, or rhonchi. GASTROINTESTINAL: Abdomen soft, non-tender, nondistended. EXTREMITIES: No edema or joint tenderness. BACK: Nontender without deformity or crepitance. No flank tenderness. NEURO: AOx3. SKIN: No rash or erythema of visible areas Initial Vital Signs Initial Vital Signs: Vital Signs Temperature 97.9 F 08/09/21 17:16 Pulse Rate 69 08/09/21 17:16 Respiratory Rate 18 08/09/21 17:16 Blood Pressure 127/76 08/09/21 17:16 Pulse Oximetry 100 08/09/21 17:16 Course Orders Ordered: ED Orders 08/09/21 18:23 XR acute abdomen series Stat Discontinued Medications Cefazolin Sodium (Cephalexin 250 Mg Prepack) 1 bottle MISC SEEINSTR ONE Stop: 08/09/21 19:00 Last Admin: 08/09/21 19:18 Dose: 500 mg Documented by: YING Sodium Chloride (Normal Saline 0.9%) 1,000 mls @ 1,000 mls/hr IV BOLUS ONE Stop: 08/09/21 19:57 Last Infusion: 08/09/21 20:10 Dose: 0 mls/hr Documented by: Admin: 08/09/21 19:09 Dose: 1,000 mls/hr Documented by: YING Ondansetron HCl (Ondansetron 4 Mg Odt Prepack) 1 bottle [facility] SEEINSTR ONE Stop: 08/09/21 19:00 Last Admin: 08/09/21 19:11 Dose: 1 bottle Documented by: YING Ondansetron HCl (Ondansetron 4 Mg/2 Ml Inj) 4 mg IV NOW ONE Stop: 08/09/21 19:24 Last Admin: 08/09/21 19:28 Dose: 4 mg Documented by: YING Pantoprazole Sodium (Pantoprazole 40 Mg Vial) 40 mg IV NOW ONE Stop: 08/09/21 18:24 Last Admin: 08/09/21 19:03 Dose: 40 mg Documented by: GUSTABO Vital Signs Vital signs: Vital Signs - 8 hr 08/09/21 20:11 Temperature 97.4 F L Pulse Rate 74 Respiratory Rate 16 Blood Pressure 137/65 Pulse Oximetry 100 MDM - Nausea/Vomiting/Diarrhea Lab Data Result diagrams: 08/09/21 17:40 08/09/21 17:40 Labs: Lab Results 08/09/21 08/09/21 08/09/21 Range/Units 17:40 17:40 18:00 WBC 7.5 (4.5-11.0) X10^3/uL RBC 4.70 (4.0-5.2) X10^6/uL Hgb 14.6 (12.0-16.0) g/dL Hct 41.8 (36-46) % MCV 88.8 (80-100) fL MCH 31.1 (26-34) PG MCHC 35.1 (30-36) % RDW 12.0 (11.6-14.8) % Plt Count 274 (150-400) X10^3/uL Neut % (Auto) 90.2 H (50-75) % Lymph % (Auto) 7.3 L (25-40) % [place] % (Auto) 1.7 L (3-14) % Eos % (Auto) 0.3 L (2-4) % Baso % (Auto) 0.5 (0-2) % Neut # (Auto) 6800 (6227-0025) /uL Lymph # (Auto) 500 L (0775-6182) /uL [place] # (Auto) 100 (0-900) /uL Eos # (Auto) 0 (0-450) /uL Baso # (Auto) 0 (0-100) /uL Sodium 140 (137-145) mmol/L Potassium 3.8 (3.4-5.1) mmol/L Chloride 104 (98-107) mmol/L Carbon Dioxide 24 (22-32) mmol/L BUN 6 L (7-17) mg/dL Creatinine 0.64 (0.52-1.04) mg/dL Estimated GFR > 60 (>60) mL/min BUN/Creatinine Ratio 9.4 (6-22) Glucose 141 H (80-110) mg/dL Calcium 9.6 (8.4-10.2) mg/dL Total Bilirubin 1.2 (0.2-1.3) mg/dL AST 26 (14-36) IU/L ALT 16 (<35) IU/L Alkaline Phosphatase 85 (38-126) U/L Total Protein 8.1 (6.3-8.2) g/dL Albumin 5.1 H (3.5-5.0) g/dL Globulin 3.0 (1.7-4.1) g/dL Albumin/Globulin Ratio 1.7 (1.0-2.8) Lipase 138 (23-300) U/L Urine RBC 1-5/hpf (0-5/HPF) Urine WBC 10-30/hpf H (0-5/HPF) Ur Squamous Epith Cells 10-30 /hpf H D (0-5/HPF) Amorphous Sediment 2+ Urine Bacteria Many (>30) H (None) Urine Mucus 1+ H (Negative) Ur Culture Indicated? Culture not indicate Urine Dip Bedside Urine Glucose Negative Bedside Urine Bilirubin - Negative Bedside Urine Ketone + 15 Urine Specific [place] 1.015 Bedside Urine Occult Blood + Bedside Urine pH 6.0 Bedside Urine Protein +/- 15 Bedside Urine Urobilinogen - Negative Bedside Urine Nitrite - Negative Bedside Urine Leukocytes ++ 125 Esterase MDM Narrative Medical decision making narrative: Patient's history and physical exam are reassuring as are labs and response to therapies. Symptoms have significantly improved, pain well controlled, patient tolerating orals Discharge Plan Departure Patient Disposition: Home Clinical Impression: Vomiting, Acute UTI Instructions: DI for Urinary Tract Infection (UTI), DI for Nausea -- Adult, DI for Vomiting -- Adult Activity Restrictions/Additional Instructions: *You have been diagnosed with [ Nausea, vomiting, and UTI. As we discussed her history, physical exam, labs and response to therapy is reassuring. This is likely a combination of urinary tract infection and possibly the increased dosing of your medication. *What to do: *Please continue to take your regular medications as directed. [ x] New medication prescriptions sent to your pharmacy: [[facility] ] [ ] New medication written as a paper prescription [ ] No new medications given *Please follow up with your primary care provider in 2-3 days, call for an appointment. Let them know you were seen in the Emergency Department and that we ask that you be seen in follow up. We will electronically transmit a record of today's note if your PCP is in our system *If you do not have a primary care provider please contact the [facility] Resource line at [phone]. They will ask some questions about your medical history and help get you set up with a doctor in the community. *Return to Emergency Department if you should have any new, worsening or concerning symptoms, such as [fever greater than 101 F, shaking chills, wors ening pain, persistent vomiting or other bothersome symptoms] Prescriptions: New cephalexin 500 mg capsule 500 mg PO BID Qty: 10 0RF ondansetron 4 mg tablet,disintegrating 4 mg PO TID-QID PRN (Reason: nausea and vomiting) Qty: 10 0RF No Action multivitamin Tablet 2 tab PO QAM 0RF Rx Instructions: multivitamin for vegans citalopram 20 mg tablet 20 mg PO DAILY Qty: 30 1RF rivastigmine tartrate 1.5 mg capsule 1.5 mg PO BID 0RF Label Comments: 3 caps po bid. memantine 10 mg tablet 10 mg PO BID 0RF mecobalamin (vitamin B12) 1,000 mcg tablet,chewable 1,000 mcg PO DAILY Qty: 90 0RF gabapentin 1,200 mg PO QPM MDD 1200 0RF Referrals: Darien Gomez MD [Primary Care Provider] -
--- NOTE | 2021-08-09 18:23 | DI.RAD.S_ITS ---
PROCEDURE: XR ACUTE ABDOMEN SERIES INDICATIONS: persistent vomiting TECHNIQUE: One view chest and two views of the abdomen were acquired. COMPARISON: None. FINDINGS: Surgical changes and devices: None. Chest: Lungs are clear. Heart size is normal. No pleural effusions. No pneumoperitoneum. Abdomen: Non-specific bowel gas pattern. No suspicious calcifications. Visualized solid organ contours appear normal. Bones: No suspicious bony lesions. IMPRESSION: No acute abnormality. Dictated by: Anjum Chacko M.D. on 08/09/2021 at 18:50 Approved by: Anjum Chacko M.D. on 08/09/2021 at 18:51
[2021-08-09 18:33] LABS: RBC Urine 1-5/HPF (0-5/HPF); WBC Urine 10-30/HPF (0-5/HPF)
[2021-08-09 18:34] LABS: Amorphous Sediment Urine 2+; Bacteria Urine Many (>30); Mucus Urine 1+ (Negative); Squamous Epithelial Cell Urine 10-30 /HPF (0-5/HPF)
[2021-08-09] MEDS: PANTOPRAZOLE 40 MG VIAL IV (19:03)
[2021-08-09] MEDS: SODIUM CHLORIDE 0.9% 1,000 ML 1000 ML IV (19:09)
[2021-08-09] MEDS: ONDANSETRON 4 MG ODT PREPACK 1 BOTTLE MISC (19:11)
[2021-08-09] MEDS: cephALEXin 250 MG PREPACK 1 BOTTLE MISC (19:18)
[2021-08-09] MEDS: ONDANSETRON 4 MG/2 ML INJ IV (19:28)
[2021-08-09 20:11] VITALS: BP 137/65; PULSE 74; RESP 16; TEMP 36.3; O2SAT 100
== END 2021-08-09 20:14 | disposition home or self-care (01) ==
PROVIDERS: Emergency Medicine; Emergency Provider Emergency Medicine; Family Provider Family Medicine; PCP Internal Medicine
DX: R11.2 Nausea with vomiting, unspecified (principal); N39.0 Urinary tract infection, site not specified
CPT/HCPCS: 36415; 74022; 80053; 81003; 81015; 83690; 85025; 87086; 96361; 96374; 96375; 99284; C9113; J2405

== ENCOUNTER 2021-08-11 13:14 | Emergency (ER) | payer OTHER, SELFPAY ==
[2021-08-11 13:48] VITALS: BP 165/79; PULSE 58; RESP 15; TEMP 36.1; O2SAT 100; BMI 20.9
[2021-08-11 14:41] VITALS: PULSE 56; O2SAT 100
[2021-08-11 14:42] VITALS: PULSE 57; RESP 16; TEMP 37; O2SAT 100
[2021-08-11 15:11] LABS: Appearance Urine UA CLEAR; Bilirubin Urine UA NEGATIVE (NEGATIVE); Color Urine UA YELLOW; Glucose Urine UA NEGATIVE (Negative); Ketones Urine UA TRACE (NEGATIVE); Leukocyte Esterase Urine UA 1+ (NEGATIVE); Nitrite Urine UA NEGATIVE (Negative); Occult Blood Urine UA TRACE-LYSED (Negative); Protein Urine UA NEGATIVE (Negative); Specific Gravity Urine UA <=1.005 (1.000-1.035); Urobilinogen Urine UA 0.2 E.U./dL (0.2)
[2021-08-11 15:19] LABS: Bacteria Urine None Seen; Culture Indicated Urine Specimen Cultured; RBC Urine 0-1/HPF (0-5/HPF); Squamous Epithelial Cell Urine 1-5 /HPF (0-5/HPF); Transitional Epi Cells Urine 1-5/HPF (0-5/HPF); WBC Urine 1-5/HPF (0-5/HPF)
[2021-08-11 15:45] VITALS: PULSE 62; O2SAT 100
[2021-08-11] MEDS: SODIUM CHLORIDE 0.9% 1,000 ML 1000 ML IV (15:45)
[2021-08-11] MEDS: cefTRIAXone 1,000 MG in SODIUM CHLORIDE 0.9% 100 ML 200 ML IV (15:45)
[2021-08-11] MEDS: ONDANSETRON 4 MG/2 ML INJ IV (15:45)
[2021-08-11 15:57] LABS: Add Manual Diff / Slide Review NO; Basophils Absolute Auto 0 /uL (0-100); Basophils Percent Auto 0.4 % (0-2); Eosinophils Absolute Auto 0 /uL (0-450); Eosinophils Percent Auto 0.1 % (2-4); Hematocrit 39.9 % (36-46); Hemoglobin 14.3 g/dL (12.0-16.0); Lymphocytes Absolute Auto 500 /uL (1100-4500); Lymphocytes Percent Auto 6.9 % (25-40); Mean Corpuscular HGB Conc 35.8 % (30-36); Mean Corpuscular Hemoglobin 31.3 PG (26-34); Mean Corpuscular Volume 87.4 fL (80-100); Monocytes Absolute Auto 200 /uL (0-900); Monocytes Percent Auto 2.5 % (3-14); Neutrophils Absolute Auto 7100 /uL (1500-7000); Neutrophils Percent Auto 90.1 % (50-75); Platelet Count 242 X10^3/uL (150-400); Red Blood Cell Count 4.57 X10^6/uL (4.0-5.2); White Blood Cell Count 7.9 X10^3/uL (4.5-11.0)
--- NOTE | 2021-08-11 15:58 | ED_ITS ---
HPI - Nausea/Vomiting/Diarrhea <Lavinia Barrios PA-C - Last Filed: 08/11/21 16:40> General Chief complaint: Nausea/Vomiting/Diarrhea Stated complaint: UTI infection Time Seen by Provider: 08/11/21 14:15 Source: patient Mode of arrival: Ambulatory History of Present Illness HPI Narrative: 66-year-old female with past medical history early onset Alzheimer disease, vitamin B12 deficiency presents to the ED for nausea and vomiting, chills. Patient was seen in the ED 3 days ago, discharged home with cephalexin for a U TI. History is mostly provided by the patient's , given patient's dementia. Patient's states that he found the patient vomiting this morning, and noticed that she was beginning to look ill with fever, chills and fatigue and shaking which was similar to symptoms she had at the onset of the UTI. Prior to being evaluated in the ED 3 days ago, patient was treated for a UTI by her PCP with no improvement. Denies chest pain, shortness of breath, diarrhea, constipation, abdominal pain, flank pain. Related Data Home Medications Medication Instructions Recorded Confirmed multivitamin 2 tab PO QAM tab 07/03/19 07/24/21 memantine 10 mg tablet 10 mg PO BID tab 07/24/21 07/24/21 rivastigmine tartrate 1.5 mg 1.5 mg PO BID cap 07/24/21 07/24/21 capsule Previous Rx's Medication Instructions Recorded citalopram 20 mg tablet 20 mg PO DAILY #30 tab 04/08/20 mecobalamin (vitamin B12) 1,000 1,000 mcg PO DAILY #90 tab 07/24/21 mcg chewable tablet cephalexin 500 mg capsule 500 mg PO BID #10 cap 08/09/21 ondansetron 4 mg disintegrating 4 mg PO TID-QID PRN #10 tab 08/09/21 tablet cefpodoxime 200 mg tablet 200 mg PO BID 10 Days #20 tab 08/11/21 gabapentin 300 mg capsule 300 - 1,200 mg PO BEDTIME #180 cap 08/11/21 Allergies Allergy/AdvReac Type Severity Reaction Status Date / Time No Known Drug Allergies Allergy Verified 08/11/21 13:48 Review of Systems <Lavinia Barrios PA-C - Last Filed: 08/11/21 16:40> Review of Systems ROS Unobtainable: All systems reviewed & are unremarkable except as noted in HPI and below Constitutional Constitutional: Reports chills, Reports fatigue, Reports fever(s), Denies frequent falls, Denies lethargy and Reports weakness Eyes Eyes: Denies change in vision, Denies eye discharge, Denies irritation and Denies loss of vision ENT Ears, Nose, Mouth, and Throat: Denies change in voice, Denies dizziness, Denies neck pain, Denies sore throat and Denies throat swelling Cardiovascular Cardiovascular: Denies chest pain, Denies irregular heart rhythm, Denies lightheadedness, Denies palpitations, Denies dyspnea, Denies dyspnea on exertion and Denies orthopnea Respiratory Respiratory: Denies cough, Denies dyspnea, Denies dyspnea on exertion and Denies wheezing Gastrointestinal Gastrointestinal: Denies abdominal pain, Denies change in bowel habits, Denies diarrhea, Reports nausea and Reports vomiting Genitourinary Genitourinary: Denies hematuria, Denies flank pain, Denies urinary incontinence and Denies urinary urgency Comments: Patient unable to provide ros on urinary symptoms Musculoskeletal Musculoskeletal: Denies back pain, Denies muscle weakness, Denies neck pain, Denies numbness and Denies tingling Integumentary/Breasts Skin/Breast: Denies pruritus, Denies erythema, Denies rash and Denies wounds Neurologic Neurologic: Denies behavioral changes, Denies confusion, Denies dizziness, Denies frequent falls, Denies loss of vision, Denies numbness, Denies tingling and Reports weakness Psychiatric Psychiatric: Denies anxiety, Denies behavioral changes, Denies confusion, Denies depression, Denies homicidal ideation and Denies suicidal ideation Endocrine Endocrine: Reports fatigue, Denies flushing and Denies palpitations Hematologic/Lymphatic Hematologic/Lymphatic: Denies easy bruising Allergic/Immunologic Allergic/Immunologic: Denies urticaria, Denies throat swelling and Denies wheezing Patient History <Lavinia Barrios PA-C - Last Filed: 08/11/21 16:40> Medical History Chronic insomnia Dementia in Alzheimer's disease with early onset Right rotator cuff tendonitis Vitamin B12 deficiency Social History marital status: details: (Jeong) works from home. Two grown children. household members: spouse Smoking Status: Never smoker alcohol intake: current Smoking Status: Never smoker alcohol intake frequency: holidays/special occasions only Substance Use Type: does not use Exam <Lavinia Barrios PA-C - Last Filed: 08/11/21 16:40> Initial Vital Signs Initial Vital Signs: Vital Signs Temperature 97.0 F L 08/11/21 13:48 Pulse Rate 58 L 08/11/21 13:48 Respiratory Rate 15 08/11/21 13:48 Blood Pressure 165/79 H 08/11/21 13:48 Pulse Oximetry 100 08/11/21 13:48 Const General: cooperative, healthy appearing and comfortable HENMT Head: normal to inspection Eyes General: appearance normal, both eyes and all related structures Neck Neck: normal visual inspection Resp Effort & Inspection: normal respiratory effort Auscultation: clear to auscultation bilaterally Cardio Rate: regular rate Rhythm: regular rhythm GI Inspection: normal to inspection Other: Abdomen is soft, nontender, nondistended. Other: No CVA tenderness Back/Spine/Pelvis Back: normal to inspection Skin General: no rashes or lesions noted Neuro General: patient alert, patient awake and patient oriented x3 Psych Appearance: grossly normal <Funmilayo Allen DO - Last Filed: 08/14/21 20:25> Initial Vital Signs Initial Vital Signs: Vital Signs Temperature 97.0 F L 08/11/21 13:48 Pulse Rate 58 L 08/11/21 13:48 Respiratory Rate 15 08/11/21 13:48 Blood Pressure 165/79 H 08/11/21 13:48 Pulse Oximetry 100 08/11/21 13:48 Course <Lavinia Barrios PA-C - Last Filed: 08/11/21 16:40> Orders Ordered: Discontinued Medications Ceftriaxone Sodium 1,000 mg/ (Sodium Chloride) 100 mls @ 200 mls/hr IV NOW ONE Stop: 08/11/21 14:52 Last Infusion: 08/11/21 16:18 Dose: 0 mls/hr Documented by: Admin: 08/11/21 15:45 Dose: 200 mls/hr Documented by: JASPER Sodium Chloride (Normal Saline 0.9%) 1,000 mls @ 1,000 mls/hr IV BOLUS ONE Stop: 08/11/21 15:54 Last Infusion: 08/11/21 16:41 Dose: 0 mls/hr Documented by: Admin: 08/11/21 15:45 Dose: 1,000 mls/hr Documented by: JASPER Ondansetron HCl (Ondansetron 4 Mg/2 Ml Inj) 4 mg IV NOW ONE Stop: 08/11/21 14:56 Last Admin: 08/11/21 15:45 Dose: 4 mg Documented by: JASPER Vital Signs Vital signs: Vital Signs - 8 hr 08/11/21 13:48 08/11/21 14:41 08/11/21 14:42 Temperature 97.0 F L 98.6 F Pulse Rate 58 L 56 L 57 L Respiratory Rate 15 16 Blood Pressure 165/79 H Pulse Oximetry 100 100 100 08/11/21 15:45 08/11/21 16:00 Temperature Pulse Rate 62 61 Respiratory Rate Blood Pressure Pulse Oximetry 100 100 <Funmilayo Allen, - Last Filed: 08/14/21 20:25> Orders Ordered: Discontinued Medications Ceftriaxone Sodium 1,000 mg/ (Sodium Chloride) 100 mls @ 200 mls/hr IV NOW ONE Stop: 08/11/21 14:52 Last Infusion: 08/11/21 16:18 Dose: 0 mls/hr Documented by: Admin: 08/11/21 15:45 Dose: 200 mls/hr Documented by: JASPER Sodium Chloride (Normal Saline 0.9%) 1,000 mls @ 1,000 mls/hr IV BOLUS ONE Stop: 08/11/21 15:54 Last Infusion: 08/11/21 16:41 Dose: 0 mls/hr Documented by: Admin: 08/11/21 15:45 Dose: 1,000 mls/hr Documented by: JASPER Ondansetron HCl (Ondansetron 4 Mg/2 Ml Inj) 4 mg IV NOW ONE Stop: 08/11/21 14:56 Last Admin: 08/11/21 15:45 Dose: 4 mg Documented by: JASPER Vital Signs Vital signs: Vital Signs - 8 hr 08/11/21 13:48 08/11/21 14:41 08/11/21 14:42 Temperature 97.0 F L 98.6 F Pulse Rate 58 L 56 L 57 L Respiratory Rate 15 16 Blood Pressure 165/79 H Pulse Oximetry 100 100 100 08/11/21 15:45 08/11/21 16:00 Temperature Pulse Rate 62 61 Respiratory Rate Blood Pressure Pulse Oximetry 100 100 MDM - Nausea/Vomiting/Diarrhea <Lavinia Barrios PA-C - Last Filed: 08/11/21 16:40> Lab Data Lab results narrative: Labs within normal limits Result diagrams: 08/11/21 15:26 08/11/21 15:26 Labs: Lab Results 08/11/21 08/11/21 08/11/21 Range/Units 15:03 15:26 15:26 WBC 7.9 (4.5-11.0) X10^3/uL RBC 4.57 (4.0-5.2) X10^6/uL Hgb 14.3 (12.0-16.0) g/dL Hct 39.9 (36-46) % MCV 87.4 (80-100) fL MCH 31.3 (26-34) PG MCHC 35.8 (30-36) % RDW 12.0 (11.6-14.8) % Plt Count 242 (150-400) X10^3/uL Neut % (Auto) 90.1 H (50-75) % Lymph % (Auto) 6.9 L (25-40) % [place] % (Auto) 2.5 L (3-14) % Eos % (Auto) 0.1 L (2-4) % Baso % (Auto) 0.4 (0-2) % Neut # (Auto) 7100 H (9565-1755) /uL Lymph # (Auto) 500 L (4455-8355) /uL [place] # (Auto) 200 (0-900) /uL Eos # (Auto) 0 (0-450) /uL Baso # (Auto) 0 (0-100) /uL Sodium 141 (137-145) mmol/L Potassium 3.5 (3.4-5.1) mmol/L Chloride 104 (98-107) mmol/L Carbon Dioxide 23 (22-32) mmol/L BUN 6 L (7-17) mg/dL Creatinine 0.66 (0.52-1.04) mg/dL Estimated GFR > 60 (>60) mL/min BUN/Creatinine Ratio 9.1 (6-22) Glucose 115 H (80-110) mg/dL Lactate (0.7-2.1) mmol/L Calcium 9.5 (8.4-10.2) mg/dL Urine Color Yellow Urine Appearance Clear Urine pH 6.0 (4.5-8.0) Ur Specific [place] <=1.005 (1.000-1.035) Urine Protein Negative (Negative) Urine Glucose (UA) Negative (Negative) g/dL Urine Ketones Trace H (NEGATIVE) Urine Occult Blood Trace-lysed (Negative) Urine Nitrate Negative (Negative) Urine Bilirubin Negative (NEGATIVE) Urine Urobilinogen 0.2 (0.2) E.U./dL Ur Leukocyte Esterase 1+ H (NEGATIVE) Urine RBC 0-1/hpf (0-5/HPF) Urine WBC 1-5/hpf (0-5/HPF) Ur Squamous Epith Cells 1-5 /hpf D (0-5/HPF) Ur Transition Epith Cell 1-5/hpf (0-5/HPF) Urine Bacteria None seen (None) Ur Culture Indicated? Specimen cultured 08/11/21 Range/Units 15:26 WBC (4.5-11.0) X10^3/uL RBC (4.0-5.2) X10^6/uL Hgb (12.0-16.0) g/dL Hct (36-46) % MCV (80-100) fL MCH (26-34) PG MCHC (30-36) % RDW (11.6-14.8) % Plt Count (150-400) X10^3/uL Neut % (Auto) (50-75) % Lymph % (Auto) (25-40) % [place] % (Auto) (3-14) % Eos % (Auto) (2-4) % Baso % (Auto) (0-2) % Neut # (Auto) (1313-5436) /uL Lymph # (Auto) (6485-2589) /uL [place] # (Auto) (0-900) /uL Eos # (Auto) (0-450) /uL Baso # (Auto) (0-100) /uL Sodium (137-145) mmol/L Potassium (3.4-5.1) mmol/L Chloride (98-107) mmol/L Carbon Dioxide (22-32) mmol/L BUN (7-17) mg/dL Creatinine (0.52-1.04) mg/dL Estimated GFR (>60) mL/min BUN/Creatinine Ratio (6-22) Glucose (80-110) mg/dL Lactate 1.8 (0.7-2.1) mmol/L Calcium (8.4-10.2) mg/dL Urine Color Urine Appearance Urine pH (4.5-8.0) Ur Specific [place] (1.000-1.035) Urine Protein (Negative) Urine Glucose (UA) (Negative) g/dL Urine Ketones (NEGATIVE) Urine Occult Blood (Negative) Urine Nitrate (Negative) Urine Bilirubin (NEGATIVE) Urine Urobilinogen (0.2) E.U./dL Ur Leukocyte Esterase (NEGATIVE) Urine RBC (0-5/HPF) Urine WBC (0-5/HPF) Ur Squamous Epith Cells (0-5/HPF) Ur Transition Epith Cell (0-5/HPF) Urine Bacteria (None) Ur Culture Indicated? MDM Narrative Medical decision making narrative: 66-year-old female with past medical history early onset Alzheimer disease, vitamin B12 deficiency presents to the ED for nausea and vomiting, chills. Concern for pyelonephritis versus UTI versus dehydration. Will obtain labs, UA, urine culture. Will give 1 g of ceftriaxone IV, IV fluids, Zofran. Will likely discharge home on cefpodoxime. Will reassess. Patient's symptoms improved with IV fluids, Zofran, ceftriaxone. Will discharge home with prescription for cefpodoxime. ED return precautions discussed with patient and patient's . They verbalized understanding. <Funmilayo Allen, DO - Last Filed: 08/14/21 20:25> Lab Data Labs: Lab Results 08/11/21 08/11/21 08/11/21 Range/Units 15:03 15:26 15:26 WBC 7.9 (4.5-11.0) X10^3/uL RBC 4.57 (4.0-5.2) X10^6/uL Hgb 14.3 (12.0-16.0) g/dL Hct 39.9 (36-46) % MCV 87.4 (80-100) fL MCH 31.3 (26-34) PG MCHC 35.8 (30-36) % RDW 12.0 (11.6-14.8) % Plt Count 242 (150-400) X10^3/uL Neut % (Auto) 90.1 H (50-75) % Lymph % (Auto) 6.9 L (25-40) % [place] % (Auto) 2.5 L (3-14) % Eos % (Auto) 0.1 L (2-4) % Baso % (Auto) 0.4 (0-2) % Neut # (Auto) 7100 H (6000-4652) /uL Lymph # (Auto) 500 L (2534-9933) /uL [place] # (Auto) 200 (0-900) /uL Eos # (Auto) 0 (0-450) /uL Baso # (Auto) 0 (0-100) /uL Sodium 141 (137-145) mmol/L Potassium 3.5 (3.4-5.1) mmol/L Chloride 104 (98-107) mmol/L Carbon Dioxide 23 (22-32) mmol/L BUN 6 L (7-17) mg/dL Creatinine 0.66 (0.52-1.04) mg/dL Estimated GFR > 60 (>60) mL/min BUN/Creatinine Ratio 9.1 (6-22) Glucose 115 H (80-110) mg/dL Lactate (0.7-2.1) mmol/L Calcium 9.5 (8.4-10.2) mg/dL Urine Color Yellow Urine Appearance Clear Urine pH 6.0 (4.5-8.0) Ur Specific [place] <=1.005 (1.000-1.035) Urine Protein Negative (Negative) Urine Glucose (UA) Negative (Negative) g/dL Urine Ketones Trace H (NEGATIVE) Urine Occult Blood Trace-lysed (Negative) Urine Nitrate Negative (Negative) Urine Bilirubin Negative (NEGATIVE) Urine Urobilinogen 0.2 (0.2) E.U./dL Ur Leukocyte Esterase 1+ H (NEGATIVE) Urine RBC 0-1/hpf (0-5/HPF) Urine WBC 1-5/hpf (0-5/HPF) Ur Squamous Epith Cells 1-5 /hpf D (0-5/HPF) Ur Transition Epith Cell 1-5/hpf (0-5/HPF) Urine Bacteria None seen (None) Ur Culture Indicated? Specimen cultured 08/11/21 Range/Units 15:26 WBC (4.5-11.0) X10^3/uL RBC (4.0-5.2) X10^6/uL Hgb (12.0-16.0) g/dL Hct (36-46) % MCV (80-100) fL MCH (26-34) PG MCHC (30-36) % RDW (11.6-14.8) % Plt Count (150-400) X10^3/uL Neut % (Auto) (50-75) % Lymph % (Auto) (25-40) % [place] % (Auto) (3-14) % Eos % (Auto) (2-4) % Baso % (Auto) (0-2) % Neut # (Auto) (3372-4831) /uL Lymph # (Auto) (6594-7846) /uL [place] # (Auto) (0-900) /uL Eos # (Auto) (0-450) /uL Baso # (Auto) (0-100) /uL Sodium (137-145) mmol/L Potassium (3.4-5.1) mmol/L Chloride (98-107) mmol/L Carbon Dioxide (22-32) mmol/L BUN (7-17) mg/dL Creatinine (0.52-1.04) mg/dL Estimated GFR (>60) mL/min BUN/Creatinine Ratio (6-22) Glucose (80-110) mg/dL Lactate 1.8 (0.7-2.1) mmol/L Calcium (8.4-10.2) mg/dL Urine Color Urine Appearance Urine pH (4.5-8.0) Ur Specific [place] (1.000-1.035) Urine Protein (Negative) Urine Glucose (UA) (Negative) g/dL Urine Ketones (NEGATIVE) Urine Occult Blood (Negative) Urine Nitrate (Negative) Urine Bilirubin (NEGATIVE) Urine Urobilinogen (0.2) E.U./dL Ur Leukocyte Esterase (NEGATIVE) Urine RBC (0-5/HPF) Urine WBC (0-5/HPF) Ur Squamous Epith Cells (0-5/HPF) Ur Transition Epith Cell (0-5/HPF) Urine Bacteria (None) Ur Culture Indicated? Discharge Plan Departure Patient Disposition: Home Clinical Impression: Acute UTI Instructions: DI for Urinary Tract Infection (UTI) Activity Restrictions/Additional Instructions: You were evaluated in the ED today for a UTI, nausea, vomiting. Your labs were normal. You received your 1st dose of IV antibiotics in the ED today. You have been prescribed a new oral antibiotic cefpodoxime. You may take Zofran for nausea. Please return to the ED if you have worsening symptoms including uncontrollable vomiting, dehydration, unable to hold down fluids. Prescriptions: New cefpodoxime 200 mg tablet 200 mg PO BID 10 Days Qty: 20 0RF Rx Instructions: must administer with a meal/food No Action multivitamin Tablet 2 tab PO QAM 0RF Rx Instructions: multivitamin for vegans citalopram 20 mg tablet 20 mg PO DAILY Qty: 30 1RF gabapentin 300 mg capsule 300 - 1,200 mg PO BEDTIME Qty: 180 3RF rivastigmine tartrate 1.5 mg capsule 1.5 mg PO BID 0RF Label Comments: 3 caps po bid. memantine 10 mg tablet 10 mg PO BID 0RF mecobalamin (vitamin B12) 1,000 mcg tablet,chewable 1,000 mcg PO DAILY Qty: 90 0RF cephalexin 500 mg capsule 500 mg PO BID Qty: 10 0RF ondansetron 4 mg tablet,disintegrating 4 mg PO TID-QID PRN (Reason: nausea and vomiting) Qty: 10 0RF Referrals: Darien Gomez MD [Primary Care Provider] - <Funmilayo Allen DO - Last Filed: 08/14/21 20:25> Cosign ED Attending [place] Attestation: I was immediately available in the department for consultation. Documentation has been reviewed.
[2021-08-11 16:00] VITALS: PULSE 61; O2SAT 100
[2021-08-11 16:03] LABS: BUN Creatinine Ratio 9.1 (6-22); Blood Urea Nitrogen 6 mg/dL (7-17); Calcium 9.5 mg/dL (8.4-10.2); Carbon Dioxide 23 mmol/L (22-32); Chloride 104 mmol/L (98-107); Estimated Glomerular Filt Rate > 60 mL/min (>60); Glucose 115 mg/dL (80-110); HEMOLYSIS 22 (0-50); Lactate (Lactic Acid) 1.8 mmol/L (0.7-2.1); Potassium 3.5 mmol/L (3.4-5.1); Sodium 141 mmol/L (137-145)
== END 2021-08-11 16:42 | disposition home or self-care (01) ==
PROVIDERS: Emergency Provider Student in an Organized Health Care Education/Training Program; Family Provider Family Medicine; PCP Internal Medicine
DX: N39.0 Urinary tract infection, site not specified (principal)
CPT/HCPCS: 36415; 80048; 81001; 83605; 85025; 87077; 87086; 87186; 96365; 96375; 99284; J0696; J2405

== ENCOUNTER → 2022-03-31 11:18 | Outpatient (CLI) | payer OTHER, SELFPAY | PROVIDERS: Family Provider Family Medicine; PCP Internal Medicine; Referring Provider Internal Medicine; Visit Provider Internal Medicine | DX: Z13.820 Encounter for screening for osteoporosis (principal); M81.0 Age-related osteoporosis without current pathological fracture; Z78.0 Asymptomatic menopausal state | CPT/HCPCS: 77080 ==

== ENCOUNTER → 2024-08-01 13:52 | Outpatient (CLI) | payer OTHER, SELFPAY ==
[2024-08-01 14:36] LABS: Hematocrit 45.1 % (36-46); Hemoglobin 15.5 g/dL (12.0-16.0); Mean Corpuscular HGB Conc 34.4 % (30-36); Mean Corpuscular Hemoglobin 31.8 PG (26-34); Mean Corpuscular Volume 92.3 fL (80-100); Platelet Count 288 X10^3/uL (150-400); Red Blood Cell Count 4.88 X10^6/uL (4.0-5.2); Red Cell Distribution Width 12.5 % (11.6-14.8); White Blood Cell Count 5.3 X10^3/uL (4.5-11.0)
[2024-08-01 14:49] LABS: Alanine Aminotransferase 16 IU/L (<35); Alkaline Phosphatase 90 U/L (38-126); Aspartate Aminotransferase 25 IU/L (14-36); BUN Creatinine Ratio 27.4 (6-22); Bilirubin Total 0.7 mg/dL (0.2-1.3); Blood Urea Nitrogen 17 mg/dL (7-17); Calcium 9.2 mg/dL (8.4-10.2); Chloride 103 mmol/L (98-107); Estimated Glomerular Filt Rate > 60 mL/min (>60); Glucose 101 mg/dL (80-110); HEMOLYSIS < 15 (0-50); Potassium 4.4 mmol/L (3.4-5.1); Sodium 138 mmol/L (137-145); Total Protein 7.7 g/dL (6.3-8.2)
[2024-08-01 14:52] LABS: Albumin 4.9 g/dL (3.5-5.0); Albumin Globulin Ratio 1.8 (1.0-2.8); Carbon Dioxide 24 mmol/L (22-32); Globulin 2.8 g/dL (1.7-4.1)
[2024-08-01 15:40] LABS: Vitamin B12 Reflex MMA if <400 < 159 pg/mL (239-931)
[2024-08-01 15:49] LABS: Free T4, Direct Thyroxine 0.81 ng/dL (0.78-2.19)
[2024-08-09 02:07] LABS: Methylmalonic Acid,Serum 1161 nmol/L (0-378)
== END ==
PROVIDERS: Family Provider Family Medicine; PCP Internal Medicine; Referring Provider Internal Medicine; Visit Provider Internal Medicine
DX: E53.8 Deficiency of other specified B group vitamins (principal); E78.2 Mixed hyperlipidemia; G30.0 Alzheimer's disease with early onset; F02.80 Dementia in other diseases classified elsewhere, unspecified severity, without behavioral disturbance, psychotic disturbance, mood disturbance, and anxiety
CPT/HCPCS: 36415; 80053; 82607; 83921; 84439; 84443; 85027

== ENCOUNTER → 2024-11-12 10:58 | Outpatient (CLI) | payer OTHER, SELFPAY ==
[2024-08-08 09:08] VITALS: BMI 21.9
[2024-11-12 12:20] LABS: TSH w/ Reflex to FT4 9.64 uIU/mL (0.47-4.68)
[2024-11-12 12:39] LABS: Vitamin B12 221 pg/mL (239-931)
[2024-11-12 15:06] LABS: Free T4, Direct Thyroxine 0.87 ng/dL (0.78-2.19)
== END ==
PROVIDERS: Family Provider Family Medicine; PCP Internal Medicine; Referring Provider Internal Medicine; Visit Provider Internal Medicine
DX: E53.8 Deficiency of other specified B group vitamins (principal); R79.89 Other specified abnormal findings of blood chemistry
CPT/HCPCS: 36415; 82607; 84439; 84443